=== PATIENT | female | born 2000 | race Caucasian/White ===

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

== ENCOUNTER → 2019-03-04 10:17 | Outpatient (CLI) | payer OTHER, SELFPAY ==
[2019-03-04 11:32] LABS: Basophils % 0.4 % (0.1-2.0); Eosinophils # 0.1 K/mm3 (0.0-0.4); Hematocrit 39.2 % (37.0-47.0); Hemoglobin 13.4 g/dL (12.2-16.2); Lymphocytes % 19.9 % (10-50); Mean Corpuscular HGB Conc 34.2 g/dL (31.8-35.4); Mean Corpuscular Hemoglobin 27.3 pg (27.0-31.2); Mean Platelet Volume 6.9 fl (7.4-10.4); Monocytes # 0.4 K/mm3 (0.1-1.0); Monocytes % 3.6 % (1.7-9.3); Neutrophils # 7.6 K/mm3 (1.8-7.8); Platelet Count 303 K/mm3 (142-424); Red Blood Count 4.91 M/mm3 (4.20-5.40); Red Cell Distribution Width 12.6 % (11.5-17.5); White Blood Count 10.2 K/mm3 (4.5-13.0)
[2019-03-05 07:19] LABS: HIV Screen 4th Generation wRfx Non Reactive (Non Reactive)
[2019-03-05 18:12] LABS: Hepatitis B Surface Antigen Negative (Negative); Hepatitis C Antibody <0.1 s/co ratio (0.0-0.9); Rapid Plasma Reagin Ab Titer Non Reactive (NonRea<1:1); Rubella Antibodies, IgG 7.73 index (Immune >0.99)
[2019-03-09 06:15] LABS: Neisseria gonorrhoeae, NAA Negative (Negative)
== END ==
PROVIDERS: Visit Provider Nurse Practitioner Obstetrics & Gynecology
DX: Z34.90 Encounter for supervision of normal pregnancy, unspecified, unspecified trimester (principal)
CPT/HCPCS: 36415; 85025; 86592; 86703; 86762; 86850; 87340; 87380; 87491; 87591; G0432

== ENCOUNTER → 2019-03-09 09:04 | Outpatient (CLI) | payer OTHER, SELFPAY ==
--- NOTE | 2019-03-09 09:08 | US_ITS ---
US OB transvaginal HISTORY: ITS.REASON: US OB Dates ORDERING PHYSICIAN: Khalif Lacy MD PATIENT AGE: 18 years COMPARISON: None FINDINGS: An intrauterine gestational sac is present with a pole with a crown-rump length of 1.85cm correlating to gestational age of 8w3d. heart tones are present with an FHR of 160 bpm's. Yolk sac is noted. The amnion and chorion have not yet fused. Adnexa: 15 mm left corpus luteum cyst. IMPRESSION: Live intrauterine gestation at 8 weeks 3 days as described above. Estimated due date by Ultrasound is 10/16/2019
== END ==
PROVIDERS: PCP Emergency Medicine; Visit Provider Nurse Practitioner Obstetrics & Gynecology
DX: O26.841 Uterine size-date discrepancy, first trimester (principal)
CPT/HCPCS: 76817

== ENCOUNTER → 2019-05-31 13:46 | Outpatient (CLI) | payer OTHER, SELFPAY ==
--- NOTE | 2019-05-31 13:48 | US_ITS ---
PROCEDURE: US OB /MATERNAL DETAIL CLINICAL INDICATION: US OB Complete anatomy evaluation COMPARISON: OBTV US OB transvaginal from 04/14/2019 FINDINGS: Single viable intrauterine gestation. Breech position. Placenta: Anteriorplacenta grade 1. There is average amount fluid. The cervix appears satisfactory. Closed and measuring 4 cm in length. Complete survey performed and was unremarkable on the submitted images as in PACS. No discrete anomalies identified on survey imaging by technologist. Active fetus. Three-vessel cord with satisfactory umbilical cord insertion. 4- chamber heart noted. Survey of brain & ventricles Unremarkable. Face and neck survey unremarkable. Diaphragm and chest views unremarkable. Abdomen: Both kidneys noted and unremarkable. Stomach noted and satisfactory. Spine: Survey of the spine satisfactory with no anomalies identified nor imaged. Both arms and legs noted. Amniotic Fluid: Adequate. Maternal adnexa: No significant findings. Measurements: Average ultrasound age 20 weeks 4 days. Gestational Age 20.57 week Estimated due date by ultrasound age 1210/14/2019. Estimated weight 338.6 ggrams. BPD = 21 weeks 0 days OFD = 21 weeks 1 day HC = 20 weeks 3 days AC = 20 weeks 3 days FL = 20 weeks 0 days Growth Percentile= 55.6 Percent% Heart Rate = 140 bpm Cerebellum = 20 weeks 0 days Humerus = 21 weeks 0 days HC/AC is 1.18 CI is 0.78 FL/BPD is 0.64 FL/AC is 0.21 IMPRESSION: There is a single live fetus which is in breech presentation with an average ultrasound age 20 weeks and 4 days. All parameters correlate with no obvious anomalies. Please see above for detail. Dictated by: Nikolay Hamilton MD 06/06/2019 19:43 Signed by: <Electronically signed by Nikolay Hamilton MD in [place]> 06/06/2019 19:43
== END ==
PROVIDERS: PCP Emergency Medicine; Visit Provider Nurse Practitioner Obstetrics & Gynecology
DX: Z36.0 Encounter for antenatal screening for chromosomal anomalies (principal)
CPT/HCPCS: 76811

== ENCOUNTER 2019-07-18 21:16 | Outpatient (CLI) | payer OTHER, SELFPAY ==
[2019-07-18 21:41] VITALS: BMI 30.1
[2019-07-18 22:03] LABS: Microscopic, Urine URINE MICROSCOPIC (MICROSCOPIC)
[2019-07-18 22:05] LABS: Appearance,Urine CLEAR (Clear); Bilirubin,Urine Negative (Negative); Blood, Urine Negative (Negative); Color,Urine YELLOW (Yellow); Glucose,Urine (UA) Negative (Negative); Ketones,Urine Negative (Negative); Leukocyte Esterase,Urine Negative (Negative); Nitrate,Urine Negative (Negative); Protein,Urine Negative (Negative); Specific Gravity, Urine 1.015 (1.005-1.030); Urobilinogen,Urine 0.2 EU/dl (0.2)
[2019-07-18 22:14] LABS: Amorphous Sediment,Urine 1+ /lpf; Bacteria,Urine 1+ /lpf; Mucus,Urine 1+ /lpf
[2019-07-18 22:15] LABS: Amphetamine/Metha Screen,Urine Negative ng/mL (<1000); Barbiturates Screen,Urine Negative ng/mL (<200); Benzodiazepines Screen,Urine Negative ng/mL (<200); Cannabinoid Screen,Urine Negative ng/mL (<50); Cocaine Screen,Urine Negative ng/mL (<300); Methadone Screen,Urine Negative ng/mL (<300); Opiate Screen,Urine Negative ng/mL (<300); Phencyclidine Screen,Urine Negative ng/mL (<25)
[2019-07-18 22:52] VITALS: BMI 30.1
== END 2019-07-18 22:30 | disposition home or self-care (01) ==
LOC: OBOUT 21:19 → OB 21:20
PROVIDERS: PCP Emergency Medicine; Visit Provider Nurse Practitioner Obstetrics & Gynecology
DX: O13.2 Gestational [pregnancy-induced] hypertension without significant proteinuria, second trimester (principal); Z3A.27 27 weeks gestation of pregnancy; M54.5 Low back pain
CPT/HCPCS: 59025; 80305; 81001; 87275; 87276

== ENCOUNTER 2019-08-13 17:37 | Outpatient (CLI) | payer OTHER, SELFPAY ==
[2019-08-13 17:43] VITALS: BP 137/86; PULSE 102; RESP 18; TEMP 36.8; O2SAT 97; BMI 32.0
[2019-08-13 17:59] LABS: Appearance,Urine CLEAR (Clear); Blood, Urine Negative (Negative); Color,Urine YELLOW (Yellow); Glucose,Urine (UA) Negative (Negative); Ketones,Urine Negative (Negative); Leukocyte Esterase,Urine TRACE (Negative); Microscopic, Urine URINE MICROSCOPIC (MICROSCOPIC); Nitrate,Urine Negative (Negative); Protein,Urine TRACE (Negative); Urobilinogen,Urine 0.2 EU/dl (0.2)
[2019-08-13 18:27] LABS: Bilirubin,Urine 1+ (Negative)
[2019-08-13 18:28] LABS: Squamous Epithelial Cell,Urine 50-100 #/hpf (0-5)
[2019-08-13 18:29] LABS: Mucus,Urine 4+ /lpf
[2019-08-13 18:33] LABS: Amphetamine/Metha Screen,Urine Negative ng/mL (<1000); Barbiturates Screen,Urine Negative ng/mL (<200); Benzodiazepines Screen,Urine Negative ng/mL (<200); Cannabinoid Screen,Urine Negative ng/mL (<50); Cocaine Screen,Urine Negative ng/mL (<300); Methadone Screen,Urine Negative ng/mL (<300); Opiate Screen,Urine Negative ng/mL (<300); Phencyclidine Screen,Urine Negative ng/mL (<25)
[2019-08-13 19:31] LABS: Anion Gap 11.3 mEq/L (5-15); Blood Urea Nitrogen 3 mg/dL (7-18); Calcium 8.9 mg/dL (8.5-10.1); Carbon Dioxide 24 mmol/L (21.0-32.0); Chloride 103 mmol/L (98-107); Creatinine Clearance Estimated 256 mL/min (50-200); Creatinine,Serum 0.55 mg/dL (0.55-1.02); Estimated Glomerular Filt Rate 142 ml/min (>60); GFR (African American) 172 ML/MIN (>60); Glucose 80 mg/dL (74-106); Potassium 3.3 mmoL/L (3.5-5.1); Sodium 135 mmol/L (136-145)
== END 2019-08-13 20:15 | disposition home or self-care (01) ==
LOC: OBOUT 17:40 → OB 17:40
PROVIDERS: PCP Nurse Practitioner Obstetrics & Gynecology; Visit Provider Obstetrics & Gynecology
DX: Z34.90 Encounter for supervision of normal pregnancy, unspecified, unspecified trimester (principal); R19.7 Diarrhea, unspecified
CPT/HCPCS: 36415; 59025; 80048; 80305; 81001; 96360

== ENCOUNTER 2019-08-15 11:54 | Outpatient (CLI) | payer OTHER, SELFPAY ==
[2019-08-15 12:03] VITALS: BMI 32.1
[2019-08-15 12:10] VITALS: BP 137/70; PULSE 69; RESP 18; TEMP 36.6; O2SAT 98; BMI 32.1
[2019-08-15 12:45] LABS: Microscopic, Urine URINE MICROSCOPIC (MICROSCOPIC)
[2019-08-15 12:52] LABS: Appearance,Urine CLEAR (Clear); Blood, Urine Negative (Negative); Color,Urine YELLOW (Yellow); Glucose,Urine (UA) Negative (Negative); Ketones,Urine Negative (Negative); Leukocyte Esterase,Urine Negative (Negative); Nitrate,Urine Negative (Negative); PH,Urine 6.5 (5.0-8.5); Protein,Urine TRACE (Negative); Specific Gravity, Urine 1.025 (1.005-1.030)
[2019-08-15 12:59] LABS: Amphetamine/Metha Screen,Urine Negative ng/mL (<1000); Barbiturates Screen,Urine Negative ng/mL (<200); Benzodiazepines Screen,Urine Negative ng/mL (<200); Cannabinoid Screen,Urine Negative ng/mL (<50); Cocaine Screen,Urine Negative ng/mL (<300); Methadone Screen,Urine Negative ng/mL (<300); Opiate Screen,Urine Negative ng/mL (<300); Phencyclidine Screen,Urine Negative ng/mL (<25)
[2019-08-15 13:08] LABS: Bilirubin,Urine Negative (Negative)
[2019-08-15 13:17] LABS: Bacteria,Urine Trace /lpf; Calcium Oxalate Crystals,Urine 1+ /lpf
[2019-08-15 14:29] LABS: Basophils % 0.2 % (0.1-2.0); Eosinophils # 0.1 K/mm3 (0.0-0.4); Eosinophils % 0.9 % (0.1-12.0); Hematocrit 37.8 % (37.0-47.0); Hemoglobin 12.4 g/dL (12.2-16.2); Lymphocytes # 1.7 K/mm3 (0.7-4.5); Lymphocytes % 15.3 % (10-50); Mean Corpuscular HGB Conc 32.9 g/dL (31.8-35.4); Mean Corpuscular Hemoglobin 27.5 pg (27.0-31.2); Mean Corpuscular Volume 83.5 fl (81-99); Mean Platelet Volume 8.5 fl (7.4-10.4); Monocytes # 0.5 K/mm3 (0.1-1.0); Monocytes % 4.1 % (1.7-9.3); Neutrophils # 8.9 K/mm3 (1.8-7.8); Neutrophils % 79.4 % (37.0-80.0); Platelet Count 275 K/mm3 (142-424); Red Blood Count 4.53 M/mm3 (4.20-5.40); Red Cell Distribution Width 12.8 % (11.5-17.5); White Blood Count 11.2 K/mm3 (4.5-13.0)
== END 2019-08-15 13:36 | disposition home or self-care (01) ==
LOC: LAB 11:56 → OB 11:57
PROVIDERS: Nurse Practitioner Obstetrics & Gynecology; PCP Emergency Medicine; Visit Provider Nurse Practitioner Family
DX: R19.7 Diarrhea, unspecified (principal)
CPT/HCPCS: 59025; 80305; 81001; 85025

== ENCOUNTER → 2019-08-15 17:09 | Outpatient (CLI) | payer OTHER, SELFPAY ==
[2019-08-15 17:11] LABS: Adenovirus F 40/41, stool Not Detected (NotDetected); Astrovirus Not Detected (NotDetected); Clostridium Difficile A/B, PCR Not Detected (NotDetected); Cryptosporidium Not Detected (NotDetected); Cyclospora Cayetanesis Not Detected (NotDetected); Entamoeba histolytica Not Detected (NotDetected); Enteroaggregative E coli Not Detected (NotDetected); Giardia lamblia Not Detected (NotDetected); Norovirus Not Detected (NotDetected); Plesimonas Shigalloides, PCR Not Detected (NotDetected); Rotavirus A Not Detected (NotDetected); Salmonella, PCR Not Detected (NotDetected); Sapovirus Not Detected (NotDetected); Shiga-like toxin E coli Not Detected (NotDetected); Shigella Enterovasive E coli Not Detected (NotDetected); Vibrio Cholerae Not Detected (NotDetected); Vibrio, PCR Not Detected (NotDetected); Yersinia Entercolitica, PCR Not Detected (NotDetected)
[2019-08-15 22:52] LABS: Campylobacter Detected (NotDetected); Enteropathogenic E coli Detected (NotDetected)
[2019-08-15 22:53] LABS: Enterotoxigenic E coli Detected (NotDetected)
== END ==
PROVIDERS: Visit Provider Nurse Practitioner Family
DX: R19.7 Diarrhea, unspecified (principal); A04.5 Campylobacter enteritis; A04.1 Enterotoxigenic Escherichia coli infection; A04.0 Enteropathogenic Escherichia coli infection
CPT/HCPCS: 87507

== ENCOUNTER 2020-03-20 15:25 | Emergency (ER) | payer OTHER, SELFPAY ==
[2020-03-20 15:34] VITALS: BP 126/59; PULSE 77; RESP 16; TEMP 36.7; O2SAT 98; BMI 32.3
[2020-03-20 15:39] VITALS: BP 126/59; PULSE 77; RESP 16; TEMP 36.7; O2SAT 98; BMI 32.1
[2020-03-20 16:00] VITALS: BP 124/66; BP 138/83; BP 145/85; PULSE 106; PULSE 119; PULSE 71
--- NOTE | 2020-03-20 16:31 | ECG_ITS ---
APPROVED REPORT Exam: Resting ECG HR:72 bpm ECG Measurements Heart Rate 72 AXES MD 152 P 41 QRSd 94 QRS 82 QT 398 T 62 QTc 435 <Conclusion> Normal sinus rhythm Normal ECG Electronically signed by : Cedrick Jones, 03/24/2020 14:19:00
[2020-03-20 16:53] LABS: Basophils # 0.1 K/mm3 (0-0.2); Basophils % 0.6 % (0.1-2.0); Eosinophils # 0.1 K/mm3 (0.0-0.4); Hematocrit 40.6 % (37.0-47.0); Hemoglobin 13.9 g/dL (12.2-16.2); Lymphocytes # 3.3 K/mm3 (0.7-4.5); Lymphocytes % 25.4 % (10-50); Mean Corpuscular HGB Conc 34.2 g/dL (31.8-35.4); Mean Corpuscular Hemoglobin 26.4 pg (27.0-31.2); Mean Corpuscular Volume 77.1 fl (81-99); Mean Platelet Volume 7.1 fl (7.4-10.4); Monocytes # 0.6 K/mm3 (0.1-1.0); Monocytes % 4.9 % (1.7-9.3); Neutrophils # 8.8 K/mm3 (1.8-7.8); Neutrophils % 68.1 % (37.0-80.0); Platelet Count 344 K/mm3 (142-424); Red Blood Count 5.27 M/mm3 (4.20-5.40)
[2020-03-20 16:57] LABS: Chloride 105 mmol/L (98-107); Sodium 141 mmol/L (136-145)
[2020-03-20 16:58] LABS: Potassium 3.8 mmoL/L (3.5-5.1)
[2020-03-20 17:00] LABS: Alanine Aminotransferase 59 U/L (12-78); Albumin Level 4.4 g/dl (3.5-5.0); Albumin/Globulin Ratio 1.3 (1.1-1.8); Alkaline Phosphatase 118 U/L (38-126); Anion Gap 11.8 mEq/L (5-15); Aspartate Amino Transferase 40 U/L (14-36); Bilirubin,Total 0.5 mg/dl (0.2-1.3); Blood Urea Nitrogen 14 mg/dl (7-17); Carbon Dioxide 28 mmol/L (22.0-30.0); Creatinine Clearance Estimated 184 mL/min (50-200); Estimated Glomerular Filt Rate 107 ml/min (>60); GFR (African American) 129 ML/MIN (>60); Globulin 3.3 g/dL (1.3-3.2); Phosphorous 3.7 mg/dl (2.5-4.5); Total Protein,Serum 7.7 g/dl (6.3-8.2)
[2020-03-20 17:01] LABS: Calcium 9.5 mg/dl (8.4-10.2); Glucose 85 mg/dl (74-100); Magnesium 1.9 mg/dl (1.6-2.3)
--- NOTE | 2020-03-20 17:06 | HMH.EDUTC ---
[facility] [place] [facility] [place] Clinical Impression: Heat exhaustion Qualifiers: Encounter type: initial encounter Qualified Code(s): T67.5XXA - Heat exhaustion, unspecified, initial encounter Disposition: Home, Self-Care Condition on Discharge: Good Instructions: DI for Heat Exhaustion and Heat Stroke Additional Instructions: Drink plenty of fluids. Water or Gatorade would be best Stay cool and rest for the next 24 hours or so. Follow up with your regular doctor. GO TO THE ER FOR ANY WORSENING SYMPTOMS Referrals: Gabriel George MD [Primary Care Provider] - Forms: Work/School Release Time of Disposition: 17:22 Medical Decision Making - Medical Records Medical records reviewed: No: I reviewed the patient's medical records. - Cody Inquiry Pt receiving controlled substance: No Vital Signs: 03/20/20 15:34 03/20/20 15:39 03/20/20 16:00 Temperature 98.0 F 98.0 F Temperature Source Oral Oral Pulse Rate Pulse Rate [Orthostatic Lying Left Brachial] 71 Pulse Rate [Orthostatic Sitting Left Brachial] 106 H Pulse Rate [Orthostatic Standing Left Brachial] 119 H Pulse Rate [Right Brachial] 77 77 Respiratory Rate 16 16 Blood Pressure Blood Pressure [Orthostatic Lying Left Arm] 124/66 Blood Pressure [Orthostatic Sitting Left Arm] 145/85 H Blood Pressure [Orthostatic Standing Left Arm] 138/83 Blood Pressure [Right Radial Artery] 126/59 L 126/59 L Blood Pressure Mean [Right Radial Artery] 81 81 Blood Pressure Source [Right Radial Artery] Automatic Cuff Automatic Cuff Blood Pressure Position [Right Radial Artery] Sitting Sitting 02 Sat by Pulse Oximetry 98 98 Oxygen Delivery Method Room Air Room Air 03/20/20 17:34 Temperature 98.0 F Temperature Source Pulse Rate 77 Pulse Rate [Orthostatic Lying Left Brachial] Pulse Rate [Orthostatic Sitting Left Brachial] Pulse Rate [Orthostatic Standing Left Brachial] Pulse Rate [Right Brachial] Respiratory Rate 16 Blood Pressure 126/59 L Blood Pressure [Orthostatic Lying Left Arm] Blood Pressure [Orthostatic Sitting Left Arm] Blood Pressure [Orthostatic Standing Left Arm] Blood Pressure [Right Radial Artery] Blood Pressure Mean [Right Radial Artery] Blood Pressure Source [Right Radial Artery] Blood Pressure Position [Right Radial Artery] 02 Sat by Pulse Oximetry Oxygen Delivery Method - Lab Data Lab results reviewed: Yes: I reviewed the patient's lab results. Lab Results 03/20/20 16:00: WBC 13.0, RBC 5.27, Hgb 13.9, Hct 40.6, MCV 77.1 L, MCH 26.4 L, MCHC 34.2, RDW 13.0, Plt Count 344, MPV 7.1 L, Neut % (Auto) 68.1, Lymph % (Auto) 25.4, [place] % (Auto) 4.9, Eos % (Auto) 1.0, Baso % (Auto) 0.6, Neut # (Auto) 8.8 H, Lymph # (Auto) 3.3, [place] # (Auto) 0.6, Eos # (Auto) 0.1, Baso # (Auto) 0.1 03/20/20 16:00: Sodium 141, Potassium 3.8, Chloride 105, Carbon Dioxide 28, Anion Gap 11.8, BUN 14, Creatinine 0.70, Estimated Creat Clear 184, Estimated GFR 107, Est GFR ( Amer) 129, Glucose 85, Calcium 9.5, Phosphorus 3.7, Magnesium 1.9, Total Bilirubin 0.5, AST 40 H, ALT 59, Alkaline Phosphatase 118, Total Protein 7.7, Albumin 4.4, Globulin 3.3 H, Albumin/Globulin Ratio 1.3, TSH 2.06 Result diagrams: 03/20/20 16:00 03/20/20 16:00 Orders (Tests/Meds): ED MEDICATIONS Discontinued Medications Generic Name Dose Route Start Last Admin Trade Name Freq PRN Reason Stop Dose Admin Sodium Chloride 1,000 mls @ 999 mls/hr 03/20/20 16:30 03/20/20 16:05 Sod Chlor 0.9% 1000ml Bag IV 03/20/20 17:30 999 mls/hr .[id number] KARISHMA Administration Ibuprofen 600 mg 03/20/20 04:30 03/20/20 18:11 Motrin 600mg Tablet PO 03/20/20 04:31 Not Given ONCE ONE Ibuprofen 600 mg 03/20/20 16:30 03/20/20 16:40 Motrin 600mg Tablet PO 03/20/20 16:31 600 mg ONCE ONE Administration Medical Decision Narrative: After 1 liter ns bolus, she stated that she felt much better. Her electrolytes were wnl on her lab work. [facility] [place] [facility] [place] HPI - G
[2020-03-20 17:32] LABS: Thyroid Stimulating Hormone 2.06 uIU/mL (0.465-4.68)
[2020-03-20 17:34] VITALS: BP 126/59; PULSE 77; RESP 16; TEMP 36.7; O2SAT 98
== END 2020-03-20 17:41 | disposition home or self-care (01) ==
PROVIDERS: Emergency Provider Nurse Practitioner Family; PCP Emergency Medicine
DX: T67.5XXA Heat exhaustion, unspecified, initial encounter (principal); F41.8 Other specified anxiety disorders; Z90.09 Acquired absence of other part of head and neck
CPT/HCPCS: 80053; 83735; 84100; 84443; 85025; 93005; 96365; 99202

== ENCOUNTER 2020-03-22 22:06 | Emergency (ER) | payer OTHER, SELFPAY ==
[2020-03-22 22:24] VITALS: BP 141/92; PULSE 85; RESP 17; TEMP 36.9; O2SAT 100; BMI 32.5
--- NOTE | 2020-03-22 22:34 | ECG_ITS ---
APPROVED REPORT Exam: Resting ECG HR:60 bpm ECG Measurements Heart Rate 60 AXES HI 138 P 38 QRSd 86 QRS 70 QT 416 T 64 QTc 416 <Conclusion> Normal sinus rhythm Normal ECG Electronically signed by : Cedrick Jones, 03/24/2020 14:13:53
[2020-03-22 22:48] LABS: Basophils # 0.1 K/mm3 (0-0.2); Basophils % 0.4 % (0.1-2.0); Eosinophils # 0.2 K/mm3 (0.0-0.4); Eosinophils % 1.2 % (0.1-12.0); Hematocrit 41.1 % (37.0-47.0); Hemoglobin 14.3 g/dL (12.2-16.2); Lymphocytes # 3.7 K/mm3 (0.7-4.5); Lymphocytes % 25.5 % (10-50); Mean Corpuscular HGB Conc 34.8 g/dL (31.8-35.4); Mean Corpuscular Volume 77.7 fl (81-99); Mean Platelet Volume 6.8 fl (7.4-10.4); Monocytes # 0.5 K/mm3 (0.1-1.0); Monocytes % 3.5 % (1.7-9.3); Neutrophils # 10.1 K/mm3 (1.8-7.8); Neutrophils % 69.4 % (37.0-80.0); Platelet Count 344 K/mm3 (142-424); Red Blood Count 5.29 M/mm3 (4.20-5.40); Red Cell Distribution Width 13.1 % (11.5-17.5); White Blood Count 14.6 K/mm3 (4.5-13.0)
[2020-03-22 22:56] LABS: Chloride 104 mmol/L (98-107); HCG Qualitative, Serum Negative (Negative); Potassium 3.7 mmoL/L (3.5-5.1); Sodium 140 mmol/L (136-145)
[2020-03-22 22:59] LABS: Blood Urea Nitrogen 13 mg/dl (7-17); Creatinine Clearance Estimated 236 mL/min (50-200); Estimated Glomerular Filt Rate 127 ml/min (>60); GFR (African American) 154 ML/MIN (>60)
[2020-03-22 23:00] LABS: Anion Gap 11.7 mEq/L (5-15); Calcium 9.8 mg/dl (8.4-10.2); Carbon Dioxide 28 mmol/L (22.0-30.0); Glucose 91 mg/dl (74-100)
[2020-03-22 23:13] LABS: Troponin I < 0.01 ng/ml (0.00-0.034)
--- NOTE | 2020-03-22 23:28 | CT_ITS ---
PROCEDURE: CT HEAD/BRAIN WO CON CLINICAL INDICATION: syncope, headache Headache and dizziness COMPARISON: [facility] CT HEAD W/O CONTRAST from 12/04/2013 TECHNIQUE: Axial images obtained. All CT scans at the facility use one or more dose reduction, viz: automated exposure control, ma/kV adjustment per patient size (including targeted exams where dose is matched to indication, i.e. head), or iterative reconstruction technique. FINDINGS: No midline shift, mass effect, intracranial hemorrhage, hydrocephalus, or extra-axial fluid collection is evident. The calvarium has an unremarkable appearance. No mastoid effusion. No sinus air-fluid level. IMPRESSION: No acute intracranial finding Dictated by: Nikolay Hamilton MD 03/23/2020 06:12 Electronically signed by Nikolay Hamilton MD in [place] 03/23/2020 06:12
--- NOTE | 2020-03-22 23:29 | PC.NURSE ---
called rad for head ct
--- NOTE | 2020-03-22 23:42 | PC.NURSE ---
to ct at this time
--- NOTE | 2020-03-22 23:52 | PC.NURSE ---
pt back from RAD
[2020-03-23 00:32] VITALS: BP 127/68; PULSE 87; O2SAT 100
--- NOTE | 2020-03-23 00:56 | HMH.EDDIZZ ---
ED Disposition Clinical Impression: Vertigo, Dizziness Disposition: Home, Self-Care Condition on Discharge: Good Instructions: DI for Syncope in Adults (Fainting) Additional Instructions: fluids and see pcp for follow up Referrals: Gabriel George MD [Primary Care Provider] - - Critical Care Critical Care Time: No Attestation: On 03/22/20, the high probability of a clinically significant, sudden or life threatening deterioration of the following system(s) required my full and direct attention, intervention and personal management. The time I documented below is in addition to time spent performing reported procedures but includes the following listed in this critical care notation. Medical Decision Making - Medical Records Medical records reviewed: Yes: I reviewed the patient's medical records. - Cody Inquiry Pt receiving controlled substance: No Vital Signs: 03/22/20 22:24 03/23/20 00:32 03/23/20 01:12 Temperature 98.5 F Temperature Source Oral Pulse Rate [Right Brachial] 85 87 78 Respiratory Rate 17 16 Blood Pressure [Right Arm] 141/92 H 127/68 116/81 Blood Pressure Mean [Right Arm] 108 87 92 Blood Pressure Source [Right Arm] Automatic Cuff Automatic Cuff Automatic Cuff Blood Pressure Position [Right Arm] Sitting Supine Sitting 02 Sat by Pulse Oximetry 100 100 97 Oxygen Delivery Method Room Air Room Air Room Air - Lab Data Lab results reviewed: Yes: I reviewed the patient's lab results. Lab Results 03/22/20 22:32: WBC 14.6 H, RBC 5.29, Hgb 14.3, Hct 41.1, MCV 77.7 L, MCH 27.0, MCHC 34.8, RDW 13.1, Plt Count 344, MPV 6.8 L, Neut % (Auto) 69.4, Lymph % (Auto) 25.5, [place] % (Auto) 3.5, Eos % (Auto) 1.2, Baso % (Auto) 0.4, Neut # (Auto) 10.1 H, Lymph # (Auto) 3.7, [place] # (Auto) 0.5, Eos # (Auto) 0.2, Baso # (Auto) 0.1 03/22/20 22:32: Sodium 140, Potassium 3.7, Chloride 104, Carbon Dioxide 28, Anion Gap 11.7, BUN 13, Creatinine 0.60, Estimated Creat Clear 236, Estimated GFR 127, Est GFR ( Amer) 154, Glucose 91, Calcium 9.8, Troponin I < 0.01 03/22/20 22:32: Serum HCG, Qual Negative 03/23/20 00:00: SARS-CoV-2 IgG Ab (Rapid) Negative, SARS-CoV-2 IgM Ab (Rapid) Negative 03/23/20 00:00: ESR 10 03/23/20 00:00: C-Reactive Protein 2.4 03/23/20 01:00: Urine Color Yellow, Urine Appearance Clear, Urine pH 6.5, Ur Specific [place] 1.020, Urine Protein Negative, Urine Glucose (UA) Negative, Urine Ketones Negative, Urine Blood Negative, Urine Nitrate Negative, Urine Bilirubin Negative, Urine Urobilinogen 0.2, Ur Leukocyte Esterase Negative, Urine WBC Occasional, Ur Squamous Epith Cells Occasional, Amorphous Sediment 1+, Urine Bacteria Trace Result diagrams: 03/22/20 22:32 03/22/20 22:32 Orders (Tests/Meds): ED MEDICATIONS Generic Name Dose Route Start Last Admin Trade Name Freq PRN Reason Stop Dose Admin Sodium Chloride 1,000 mls @ 999 mls/hr 03/22/20 22:45 03/22/20 22:44 Sod Chlor 0.9% 1000ml Bag IV 03/22/20 23:45 999 mls/hr .Q1H1M KARISHMA Administration Discontinued Medications Generic Name Dose Route Start Last Admin Trade Name Freq PRN Reason Stop Dose Admin Ketorolac Tromethamine 30 mg 03/22/20 23:37 03/22/20 23:39 Toradol 30mg/Ml Vial IV 03/22/20 23:38 30 mg ONCE ONE Administration Meclizine HCl 25 mg 03/22/20 23:24 03/22/20 23:25 Antivert 25mg Tablet PO 03/22/20 23:25 25 mg ONCE ONE Administration ORDERS Category Date Time Status CT head/brain wo con Stat Cat Scan 03/22/20 23:28 Taken Troponin I Q3H Lab 03/23/20 01:45 Ordered Troponin I Q3H Lab 03/23/20 04:45 Ordered - CT Data CT Scan: Head Time Received: 01:[address] Reviewed: Yes: I have viewed the radiologist's interpretation Preliminary Findings: Normal/NAD - ECG Data Tracing #1 Normal Sinus Rhythm: Yes Ischemic changes: non-specific ST-T wave changes Dizzy HPI - General Chief Complaint: Syncope Stated Complaint: dizzy,nausa Time Seen by Provider: 03/23/20 00:00
--- NOTE | 2020-03-23 01:01 | PC.NURSE ---
pt ambulated to the bathroom independently. tolerated well.
[2020-03-23 01:11] LABS: Microscopic, Urine URINE MICROSCOPIC (MICROSCOPIC)
[2020-03-23 01:12] VITALS: BP 116/81; PULSE 78; RESP 16; O2SAT 97
[2020-03-23 01:20] LABS: Appearance,Urine CLEAR (Clear); Bilirubin,Urine Negative (Negative); Blood, Urine Negative (Negative); Color,Urine YELLOW (Yellow); Glucose,Urine (UA) Negative (Negative); Ketones,Urine Negative (Negative); Leukocyte Esterase,Urine Negative (Negative); Nitrate,Urine Negative (Negative); PH,Urine 6.5 (5.0-8.5); Protein,Urine Negative (Negative); Urobilinogen,Urine 0.2 EU/dl (0.2)
[2020-03-23 01:24] LABS: C-Reactive Protein 2.4 mg/L (0-4)
[2020-03-23 01:26] LABS: Amorphous Sediment,Urine 1+ /lpf; Bacteria,Urine Trace /lpf; Squamous Epithelial Cell,Urine Occasional #/hpf (0-5); WBC,Urine Occasional #/hpf (0-3)
[2020-03-23 01:36] LABS: Erythrocyte Sedimentation Rate 10 mm/hr (0-20)
[2020-03-23 01:41] LABS: Coronavirus 19 IgG Antibody Negative (Negative); Coronavirus 19 IgM Antibody Negative (Negative)
[2020-03-23 02:12] VITALS: BP 121/74; PULSE 73; RESP 16; TEMP 36.7; O2SAT 97
[2020-03-25 08:55] LABS: Covid-19 Nasal PCR Sendout Lex Not Detected
== END 2020-03-23 02:16 | disposition home or self-care (01) ==
PROVIDERS: Emergency Provider Emergency Medicine; PCP Emergency Medicine
DX: R42 Dizziness and giddiness (principal); F41.8 Other specified anxiety disorders
CPT/HCPCS: 70450; 80048; 81001; 84484; 84703; 85025; 85651; 86140; 86328; 93005; 96365; 96375; 99283; 99284; U0004

== ENCOUNTER → 2020-03-26 17:50 | Outpatient (CLI) | payer OTHER, SELFPAY ==
[2020-03-26 18:32] LABS: T4 (Thyroxine) 9.4 ug/dl (5.53-11.0)
[2020-03-26 19:30] LABS: Thyroid Stimulating Hormone 1.61 uIU/mL (0.465-4.68)
[2020-03-26 20:11] LABS: Hemoglobin A1C 5.3 % (4.0-6.0)
== END ==
PROVIDERS: Visit Provider Physician Assistant
DX: R42 Dizziness and giddiness (principal); E03.9 Hypothyroidism, unspecified
CPT/HCPCS: 83036; 84436; 84443

== ENCOUNTER 2020-04-10 14:36 | Emergency (ER) | payer OTHER, SELFPAY ==
[2020-04-10 14:36] VITALS: BP 122/78; PULSE 77; RESP 21; TEMP 36.7; O2SAT 100; BMI 32.5
--- NOTE | 2020-04-10 15:14 | HMH.EDUTC ---
[facility] Disposition Clinical Impression: Low back pain Qualifiers: Chronicity: unspecified Back pain laterality: unspecified Sciatica presence: unspecified whether sciatica present Qualified Code(s): M54.5 - Low back pain Disposition: Home, Self-Care Condition on Discharge: Good Instructions: Low Back Pain, DI for Low Back Pain Additional Instructions: *Etodolac patti 6 hours with meal as needed for pain/inflammation *Remember you had a Toradol shot in the clinic today, which is similar to Etodolac, do not take Etodolac for at least 8hrs 11pm *Not additional anti-inflammatory like motrin, aleve, advil with the above amount of Etodolac. You can still take Tylenol every 4 hours as needed if you need something else for pain *Ice 20 minutes every 2 hours for the first 48 hours after the initial injury followed by moist heat every 20 minutes 3-4 times a day to affected area *Keep this area active, no movement leads to more stiffness, However take it easy and avoid heavy lifting pushing or pulling *Follow up with you family doctor if no improvement for further treatment Return if needed Straight to ER if any life threatening symptoms Follow up with Family doctor if no improvement or any worsening of symptoms in the next 48-72 hours Prescriptions: Etodolac [Etodolac 200mg Cap*] 200 mg PO Q6H PRN #16 cap PRN Reason: Moderate Pain Transmission Status: Received by [facility] Referrals: Gabriel George MD [Primary Care Provider] - As needed Time of Disposition: 15:53 Medical Decision Making - Cody Inquiry Pt receiving controlled substance: No Cody was queried for this patient: No Vital Signs: 04/10/20 14:36 Temperature 98.1 F Temperature Source Oral Pulse Rate [Radial] 77 Respiratory Rate 21 Blood Pressure [Right Arm] 122/78 Blood Pressure Mean [Right Arm] 92 Blood Pressure Source [Right Arm] Automatic Cuff Blood Pressure Position [Right Arm] Sitting 02 Sat by Pulse Oximetry 100 Oxygen Delivery Method Room Air - Lab Data Lab results reviewed: Yes: I reviewed the patient's lab results. Lab Results 04/10/20 15:06: Urine Color Yellow, Urine Appearance Clear, Urine pH 7.0, Ur Specific [place] 1.020, Urine Protein Negative, Urine Glucose (UA) Negative, Urine Ketones Negative, Urine Blood Negative, Urine Nitrate Negative, Urine Bilirubin Negative, Urine Urobilinogen 1, Ur Leukocyte Esterase Negative 04/10/20 15:15: Tst Clinic Negative Orders (Tests/Meds): ED MEDICATIONS Discontinued Medications Generic Name Dose Route Start Last Admin Trade Name Lucia PRN Reason Stop Dose Admin Ketorolac Tromethamine 60 mg 04/10/20 15:21 04/10/20 15:35 Toradol 60mg/2ml Vial IM 04/10/20 15:22 60 mg ONCE ONE Administration - Reevaluation(s) Time: 15:53 Reevaluation #1: Patient state that Torodol helped with pain Medical Decision Narrative: Patient denies known injury Discussed with patient that we could send her to the ED for further evaluation and testing and she declined State that she will try injection of Torodol and see if it helps and if not follow up with PCP or OBGYN [facility] HPI - General Stated complaint: back pain, no accident Time Seen by Provider: 04/10/20 15:14 Mode of Arrival: Ambulatory Source of Information: Patient Limitations: No Limitations Description of Symptoms (Recalled from Triage Doc. by RN): lower back pain/tons of pressure since last night. HEENT Symptoms (Recalled from RN notes): No Resp Symptoms (Recalled from RN notes): No Skin Symptoms (Recalled from RN notes): No MS Symptoms (Recalled from RN notes): Yes Functional Status (Recalled from RN notes): wnl - History of Present Illness Provider Complaint: Patient states that she has been having throbbing like pain in her lower back area worse on left side with pressure like feeling State that pain feels like it may be moving into her left buttock area State that she was worried that she may have a UTI States
[2020-04-10 15:36] LABS: Apearance,Urine Clear (Clear); Bilirubin,Urine Negative (Negative); Blood, Urine Negative (Negative); Color,Urine Yellow (Yellow); Glucose,Urine (UA) Negative (Negative); Ketones,Urine Negative (Negative); Protein,Urine Negative (Negative)
[2020-04-10 15:36] LABS: UTC Pregnancy Test, Urine Negative (Negative)
[2020-04-10 15:37] LABS: UTC Leukocyte Esterase,Urine Negative (Negative); UTC Nitrate,Urine Negative (Negative); Urobilinogen,Urine 1 EU/dl (0.2)
[2020-04-10 16:03] VITALS: BP 122/78; PULSE 77; RESP 21; TEMP 36.7; O2SAT 100
== END 2020-04-10 16:05 | disposition home or self-care (01) ==
PROVIDERS: Emergency Provider Nurse Practitioner; PCP Emergency Medicine
DX: M54.5 Low back pain (principal); F41.8 Other specified anxiety disorders; Z79.899 Other long term (current) drug therapy
CPT/HCPCS: 81003; 81025; 96372; 99201; 99202

== ENCOUNTER → 2020-07-02 11:11 | Outpatient (CLI) | payer OTHER, SELFPAY ==
[2020-07-03 15:19] LABS: Covid-19 Nasal PCR Sendout Lex Not Detected
== END ==
PROVIDERS: PCP Emergency Medicine; Visit Provider Physician Assistant
DX: Z20.828 Contact with and (suspected) exposure to other viral communicable diseases (principal)
CPT/HCPCS: U0004

== ENCOUNTER 2021-02-04 20:53 | Emergency (ER) | payer OTHER, SELFPAY ==
[2021-02-04 21:15] VITALS: BP 127/80; PULSE 96; RESP 18; TEMP 36; O2SAT 98; BMI 34.0
[2021-02-04 21:32] LABS: Microscopic, Urine URINE MICROSCOPIC (MICROSCOPIC)
[2021-02-04 21:33] LABS: Appearance,Urine CLEAR (Clear); Bilirubin,Urine Negative (Negative); Blood, Urine TRACE-I (Negative); Color,Urine YELLOW (Yellow); Glucose,Urine (UA) Negative (Negative); Ketones,Urine Negative (Negative); Leukocyte Esterase,Urine Negative (Negative); Nitrate,Urine Negative (Negative); Protein,Urine Negative (Negative); Specific Gravity, Urine 1.025 (1.005-1.030); Urobilinogen,Urine 0.2 EU/dl (0.2)
[2021-02-04 21:35] LABS: Urine Pregnancy, HCG Qual. Negative (Negative)
--- NOTE | 2021-02-04 21:42 | CT_ITS ---
PROCEDURE: CT ABDOMEN PELVIS W CON CLINICAL INDICATION: Abd pain COMPARISON: No exams were available for comparison TECHNIQUE: IV Contrast: 75ML OPTIRAY 350 Oral Contrast none given Axial images obtained with sagittal and coronal reformats. All CT scans at the facility use one or more dose reduction, viz: automated exposure control, ma/kV adjustment per patient size (including targeted exams where dose is matched to indication, i.e. head), or iterative reconstruction technique. FINDINGS: Lower thorax: The lower lung bajwa are clear and there is no pleural fluid. ABDOMEN: Liver: The liver is normal size and shows mild diffuse hypodensity consistent with fatty infiltration. There are no focal lesions. Gallbladder: Post cholecystectomy Pancreas: No masses or peripancreatic fluid collections. Spleen: unremarkable Adrenals: unremarkable Kidneys/ureters: unremarkable The kidneys show symmetrical function following injection of contrast. ABDOMEN & PELVIS: Stomach bowel: Stomach is moderately distended with ingested food particles and fluid appears grossly normal. The small bowel appears normal. There is liquid stool in the cecum and ascending colon, the descending and sigmoid colon are somewhat decompressed. Peritoneum: No abnormal fluid collections. No obvious inflammatory changes. There is a tiny umbilical hernia containing fat only. No free air. Lymph nodes: No enlarged lymph nodes apparent. Vasculature: No evidence of abdominal aortic aneurysm. No retroperitoneal hemorrhage evident. Bones: There is a moderate-sized central disc protrusion L5-S1, is are history of low back pain and/or radiculopathy in either leg ? PELVIS: Reproductive: The uterus is normal size and in the midline. There is a tampon in the vagina. There is a small left adnexal cystic lesion measuring 2.4 x 2.6 by 3.1 cm and likely an ovarian cyst. Bladder: The bladder is decompressed but otherwise appears normal. There is a small amount of free fluid in the cul-de-sac likely physiologic. Appendix: Not definitely identified but there are no pericecal inflammatory changes. IMPRESSION: 1. Mild hepatic steatosis 2. Probable small left ovarian cyst 3. Liquid stool ascending colon consistent with history of diarrhea 4. Moderate size central disc protrusion L5-S1 Dictated by: Dr. Jude Ward MD 02/05/2021 07:41 Dr. Jude Ward MD in [place] 02/05/2021 07:41
[2021-02-04 21:44] LABS: Bacteria,Urine 1+ /lpf; Mucus,Urine 1+ /lpf; RBC,Urine Occasional #/hpf (0-3)
[2021-02-04 22:08] LABS: Basophils # 0.1 K/mm3 (0-0.2); Basophils % 0.3 % (0.1-2.0); Eosinophils # 0.2 K/mm3 (0.0-0.4); Eosinophils % 1.1 % (0.1-12.0); Hematocrit 45.3 % (37.0-47.0); Hemoglobin 14.9 g/dL (12.2-16.2); Lymphocytes # 2.3 K/mm3 (0.7-4.5); Mean Corpuscular HGB Conc 32.9 g/dL (31.8-35.4); Mean Corpuscular Hemoglobin 26.1 pg (27.0-31.2); Mean Corpuscular Volume 79.2 fl (81-99); Mean Platelet Volume 7.3 fl (7.4-10.4); Monocytes # 0.4 K/mm3 (0.1-1.0); Neutrophils # 17.8 K/mm3 (1.8-7.8); Neutrophils % 85.7 % (37.0-80.0); Platelet Count 362 K/mm3 (142-424); Red Blood Count 5.72 M/mm3 (4.20-5.40); White Blood Count 20.8 K/mm3 (4.8-10.8)
[2021-02-04 22:12] LABS: MANUAL DIFFERENTIAL MANUAL DIFFERENTIAL (MANUAL DIFF)
[2021-02-04 22:15] LABS: Alanine Aminotransferase 79 U/L (12-78); Albumin Level 3.9 g/dl (3.5-5.0); Albumin/Globulin Ratio 1.4 (1.1-1.8); Alkaline Phosphatase 102 U/L (38-126); Amylase 57 U/L (30-110); Anion Gap 10.9 mEq/L (5-15); Aspartate Amino Transferase 71 U/L (14-36); Bilirubin,Total 0.3 mg/dl (0.2-1.3); Blood Urea Nitrogen 8 mg/dl (7-17); Calcium 7.9 mg/dl (8.4-10.2); Carbon Dioxide 18 mmol/L (22.0-30.0); Chloride 116 mmol/L (98-107); Creatinine Clearance Estimated 366 mL/min (50-200); Estimated Glomerular Filt Rate 201 ml/min (>60); GFR (African American) 244 ML/MIN (>60); Globulin 2.7 g/dL (1.3-3.2); Glucose 82 mg/dl (74-100); Lipase 27 U/L (23-300); Sodium 142 mmol/L (136-145); Total Protein,Serum 6.6 g/dl (6.3-8.2)
[2021-02-04 22:19] LABS: Potassium 2.9 mmoL/L (3.5-5.1)
[2021-02-04 22:20] LABS: C-Reactive Protein 1.3 mg/L (0-4)
[2021-02-04 22:35] LABS: Procalcitonin 0.038 ng/mL (0.0-2.0)
[2021-02-04 22:39] LABS: Erythrocyte Sedimentation Rate 6 mm/hr (0-20)
[2021-02-04 22:42] LABS: Lymphocytes % 15 % (10-50); Monocytes % 4 % (2-9); Neutrophils % 81 % (42-76); Platelet Estimate Normal; RBC Morphology Normal; Total Cells Counted 100
--- NOTE | 2021-02-04 23:49 | HMH.EDNVD ---
ED Disposition Clinical Impression: Gastroenteritis, SIRS (systemic inflammatory response syndrome), Hypokalemia Disposition: Home, Self-Care Condition on Discharge: Good Instructions: DI for Diarrhea and Traveler's Diarrhea -- Adult Additional Instructions: fluids and try to get diarrhea panel as op Referrals: Gabriel George MD [Primary Care Provider] - - Critical Care Critical Care Time: No Attestation: On 02/04/21, the high probability of a clinically significant, sudden or life threatening deterioration of the following system(s) required my full and direct attention, intervention and personal management. The time I documented below is in addition to time spent performing reported procedures but includes the following listed in this critical care notation. Medical Decision Making - Medical Records Medical records reviewed: Yes: I reviewed the patient's medical records. - Cody Inquiry Pt receiving controlled substance: No Vital Signs: 02/04/21 21:15 Temperature 96.8 F L Temperature Source Oral Pulse Rate [Apical] 96 H Respiratory Rate 18 Blood Pressure [Right Arm] 127/80 Blood Pressure Mean [Right Arm] 95 Blood Pressure Source [Right Arm] Automatic Cuff Blood Pressure Position [Right Arm] Supine 02 Sat by Pulse Oximetry 98 Oxygen Delivery Method Room Air - Lab Data Lab results reviewed: Yes: I reviewed the patient's lab results. Lab Results 02/04/21 21:30: Urine Color Yellow, Urine Appearance Clear, Urine pH 6.0, Ur Specific [place] 1.025, Urine Protein Negative, Urine Glucose (UA) Negative, Urine Ketones Negative, Urine Blood Trace-i, Urine Nitrate Negative, Urine Bilirubin Negative, Urine Urobilinogen 0.2, Ur Leukocyte Esterase Negative, Urine RBC Occasional, Urine WBC 3-5, Urine Bacteria 1+, Urine Mucus 1+ 02/04/21 21:30: Urine HCG, Qual Negative 02/04/21 21:45: WBC 20.8 H*, RBC 5.72 H, Hgb 14.9, Hct 45.3, MCV 79.2 L, MCH 26.1 L, MCHC 32.9, RDW 13.0, Plt Count 362, MPV 7.3 L, Neut % (Auto) 85.7 H, Lymph % (Auto) 11.0, [place] % (Auto) 2.0, Eos % (Auto) 1.1, Baso % (Auto) 0.3, Neut # (Auto) 17.8 H, Lymph # (Auto) 2.3, [place] # (Auto) 0.4, Eos # (Auto) 0.2, Baso # (Auto) 0.1, Total Counted 100, Neutrophils % (Manual) 81 H, Lymphocytes % (Manual) 15, Monocytes % (Manual) 4, Platelet Estimate Normal, RBC Morphology Normal, ESR 6 02/04/21 21:45: Sodium 142, Potassium 2.9 L*, Chloride 116 H, Carbon Dioxide 18 L, Anion Gap 10.9, BUN 8, Creatinine 0.40 L, Estimated Creat Clear 366 H, Estimated GFR 201, Est GFR ( Amer) 244, Glucose 82, Calcium 7.9 L, Total Bilirubin 0.3, AST 71 H, ALT 79 H, Alkaline Phosphatase 102, C-Reactive Protein 1.3, Total Protein 6.6, Albumin 3.9, Globulin 2.7, Albumin/Globulin Ratio 1.4, Amylase 57, Lipase 27, Procalcitonin 0.038 Result diagrams: 02/04/21 21:45 02/04/21 21:45 Orders (Tests/Meds): ED MEDICATIONS Generic Name Dose Route Start Last Admin Trade Name Freq PRN Reason Stop Dose Admin Sodium Chloride 1,000 mls @ 999 mls/hr 02/04/21 21:45 02/04/21 22:10 Sod Chlor 0.9% 1000ml Bag IV 02/04/21 22:45 999 mls/hr .Q1H1M KARISHMA Administration Sodium Chloride 8 ml 02/04/21 21:42 Sodium Chloride 0.9% 10ml Vial IV 03/06/21 21:41 NEEDED PRN dilute pepcid Discontinued Medications Generic Name Dose Route Start Last Admin Trade Name Freq PRN Reason Stop Dose Admin Famotidine 20 mg 02/04/21 21:42 02/04/21 22:09 Famotidine 20mg/2ml Vial IV 02/04/21 21:43 20 mg ONCE ONE Administration Iopamidol 75 ml 02/04/21 22:08 02/04/21 22:10 Iopamidol-370 (76%);100ml Bottle IV 02/04/21 22:09 75 ml ONCE ONE Administration Ketorolac Tromethamine 30 mg 02/04/21 21:42 02/04/21 22:09 Ketorolac 30mg/Ml Vial IV 02/04/21 21:43 30 mg ONCE ONE Administration Metoclopramide HCl 10 mg 02/04/21 21:42 02/04/21 22:09 Metoclopramide Hcl 10mg/2ml Vial IVP 02/04/21 21:43 10 mg ONCE ONE Administration Ondansetron HCl 4 mg 04
[2021-02-05 00:34] VITALS: BP 121/67; PULSE 96; RESP 18; TEMP 36; O2SAT 98
== END 2021-02-05 00:38 | disposition home or self-care (01) ==
PROVIDERS: Emergency Provider Emergency Medicine; PCP Emergency Medicine
DX: K52.9 Noninfective gastroenteritis and colitis, unspecified (principal); E87.6 Hypokalemia; R65.10 Systemic inflammatory response syndrome (SIRS) of non-infectious origin without acute organ dysfunction; F41.8 Other specified anxiety disorders
CPT/HCPCS: 74177; 80053; 81001; 81025; 82150; 83690; 84145; 85007; 85025; 85651; 86140; 96365; 96375; 99283; J2405; Q9967

== ENCOUNTER → 2021-08-05 10:46 | Outpatient (CLI) | payer OTHER, SELFPAY ==
[2021-08-05 11:47] LABS: HCG,Quantitative 116 mIU/ml (0-5.42)
== END ==
PROVIDERS: Visit Provider Nurse Practitioner Obstetrics & Gynecology
DX: N92.6 Irregular menstruation, unspecified (principal)
CPT/HCPCS: 36415; 84702

== ENCOUNTER → 2021-08-12 11:52 | Outpatient (CLI) | payer OTHER, SELFPAY ==
[2021-08-12 13:25] LABS: HCG,Quantitative 2046 mIU/ml (0-5.42)
== END ==
PROVIDERS: Visit Provider Nurse Practitioner Obstetrics & Gynecology
DX: N92.6 Irregular menstruation, unspecified (principal)
CPT/HCPCS: 36415; 84702

== ENCOUNTER → 2021-09-16 14:37 | Outpatient (CLI) | payer OTHER, SELFPAY ==
--- NOTE | 2021-09-16 14:47 | US_ITS ---
PROCEDURE: US OB <= 14 WEEKS FETUS CLINICAL INDICATION: for dates The COMPARISON: US US OB /MATERNAL DETAIL from 05/31/2019 FINDINGS: An intrauterine gestational sac is present with a pole with a crown-rump length of 3.31cm correlating to gestational age of 10weeks 2days. heart tones are present with an FHR of 160bpm. Yolk sac is noted. IMPRESSION: Live IUP at 10 weeks 2 days Estimated due date by Ultrasound is 04/12/2022 Dictated by: Nikolay Hamilton MD 09/16/2021 16:35 Nikolay Hamilton MD in [place] 09/16/2021 16:35
== END ==
PROVIDERS: PCP Emergency Medicine; Visit Provider Nurse Practitioner Obstetrics & Gynecology
DX: Z34.90 Encounter for supervision of normal pregnancy, unspecified, unspecified trimester (principal)
CPT/HCPCS: 76801

== ENCOUNTER 2021-09-16 18:37 | Emergency (ER) | payer OTHER, SELFPAY ==
[2021-09-16 18:38] VITALS: BMI 26.6
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
[2021-09-16 18:51] VITALS: BP 146/83; PULSE 70; RESP 18; TEMP 36.9; O2SAT 99; BMI 28.1
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
[2021-09-16 19:21] LABS: Urine Pregnancy, HCG Qual. Positive (Negative)
[2021-09-16 19:59] VITALS: BP 146/83; PULSE 78; RESP 16; TEMP 36.8; O2SAT 98
== END 2021-09-16 20:00 | disposition home or self-care (01) ==
PROVIDERS: Emergency Provider Family Medicine; PCP Emergency Medicine
DX: S30.1XXA Contusion of abdominal wall, initial encounter (principal); Y04.2XXA Assault by strike against or bumped into by another person, initial encounter; Y92.019 Unspecified place in single-family (private) house as the place of occurrence of the external cause; Z3A.10 10 weeks gestation of pregnancy; F41.8 Other specified anxiety disorders
CPT/HCPCS: 76817; 81025; 99282

== ENCOUNTER → 2021-11-20 07:45 | Outpatient (CLI) | payer OTHER, SELFPAY ==
[2021-11-20 08:26] LABS: Basophils % 0.4 % (0.1-2.0); Eosinophils # 0.2 K/mm3 (0.0-0.4); Eosinophils % 1.2 % (0.1-12.0); Hemoglobin 12.8 g/dL (12.2-16.2); Lymphocytes # 2.5 K/mm3 (0.7-4.5); Lymphocytes % 20.2 % (10-50); Mean Corpuscular HGB Conc 32.9 g/dL (31.8-35.4); Mean Corpuscular Hemoglobin 27.3 pg (27.0-31.2); Mean Corpuscular Volume 82.8 fl (81-99); Mean Platelet Volume 7.8 fl (7.4-10.4); Monocytes # 0.5 K/mm3 (0.1-1.0); Monocytes % 4.4 % (1.7-9.3); Neutrophils # 9.2 K/mm3 (1.8-7.8); Platelet Count 301 K/mm3 (142-424); Red Cell Distribution Width 13.8 % (11.5-17.5); White Blood Count 12.4 K/mm3 (4.8-10.8)
[2021-11-21 08:15] LABS: HIV Screen 4th Generation wRfx Non Reactive (Non Reactive); HSV 2 IgG, Type Spec <0.91 index (0.00-0.90); Hepatitis B Surface Antigen Negative (Negative); Hepatitis C Antibody <0.1 s/co ratio (0.0-0.9); Rubella Antibodies, IgG 9.23 index (Immune >0.99)
[2021-11-21 10:18] LABS: Rapid Plasma Reagin Ab Titer Non Reactive (NonRea<1:1)
== END ==
PROVIDERS: PCP Emergency Medicine; Visit Provider Nurse Practitioner Obstetrics & Gynecology
DX: Z34.90 Encounter for supervision of normal pregnancy, unspecified, unspecified trimester (principal)
CPT/HCPCS: 36415; 85025; 86592; 86695; 86703; 86762; 86790; 86850; 87340; 87380; G0432

== ENCOUNTER → 2021-11-26 13:00 | Outpatient (CLI) | payer OTHER, SELFPAY ==
--- NOTE | 2021-11-26 13:01 | US_ITS ---
FINAL REPORT CLINICAL HISTORY: 20 wk ob complete anatomy scan FINDINGS: There is a single live intrauterine gestation. Presentation is breech. The cervix is closed and measures 3.1 cm. Placenta is posterior and grade 1. Cardiac activity is confirmed at 146 bpm. The fetus is active. Three-vessel cord with satisfactory umbilical cord insertion. Four-chamber heart is noted. brain and ventricles are unremarkable. Chest and diaphragm are unremarkable. ABDOMEN: Both kidneys are unremarkable. Stomach is unremarkable. SPINE: No anomalies identified. Both arms and legs noted. AMNIOTIC FLUID: Appropriate amount. MEASUREMENTS: ULTRASOUND AGE: 20 weeks 2 days. GESTATION AGE: 20 weeks 0 days. ESTIMATED WEIGHT: 343 g GROWTH PERCENTILE: 61% BPD: 4.6 cm consistent with 20 weeks 0 days. OFD: 6.3 cm consistent with 21 weeks 0 days. HC: 17.4 cm consistent with 20 weeks 0 days. AC: 15.3 cm consistent with 20 weeks 4 days. FL: 3.3 cm consistent with 20 weeks 2 days. CEREBELLUM: 2.0 cm consistent with 20 weeks 1 days. HUMERUS: 3.1 cm consistent with 20 weeks 2 days. HC/AC: 1.14 CI: 73% FL/BPD: 71% FL/AC: 21% IMPRESSION: Single living IUP with an ultrasound age of 20 weeks 2 days. Reviewed, Interpreted and Dictated by Garth Patel III, MD Transcribed by Davey Man Authenticated by Garth Patel III, MD on 11/26/2021 02:48:04 PM [facility]
== END ==
PROVIDERS: PCP Emergency Medicine; Visit Provider Nurse Practitioner Obstetrics & Gynecology
DX: Z36.0 Encounter for antenatal screening for chromosomal anomalies (principal)
CPT/HCPCS: 76811

== ENCOUNTER 2021-12-28 21:24 | Outpatient (CLI) | payer OTHER, SELFPAY ==
[2021-12-28 21:29] VITALS: BMI 34.1
[2021-12-28 21:36] VITALS: BP 130/79; PULSE 72; RESP 19; TEMP 36.6; O2SAT 98; BMI 34.1
[2021-12-28 21:59] LABS: Microscopic, Urine URINE MICROSCOPIC (MICROSCOPIC)
[2021-12-28 22:08] LABS: Appearance,Urine CLEAR (Clear); Bilirubin,Urine Negative (Negative); Blood, Urine Negative (Negative); Color,Urine YELLOW (Yellow); Glucose,Urine (UA) Negative (Negative); Ketones,Urine Negative (Negative); Leukocyte Esterase,Urine Negative (Negative); Nitrate,Urine Negative (Negative); Protein,Urine TRACE (Negative); Specific Gravity, Urine >= 1.030 (1.005-1.030); Urobilinogen,Urine 0.2 EU/dl (0.2)
[2021-12-28 22:09] LABS: Amorphous Sediment,Urine Trace /lpf; Mucus,Urine 4+ /lpf
[2021-12-28 22:12] LABS: Barbiturates Screen,Urine Negative ng/ml (<200)
[2021-12-28 22:13] LABS: Amphetamine/Metha Screen,Urine Negative ng/ml (<1000); Benzodiazepines Screen,Urine Negative ng/ml (<200)
[2021-12-28 22:14] LABS: Cannabinoid Screen,Urine Negative ng/ml (<50)
[2021-12-28 22:14] LABS: Fetal Membrane Rupture (Rapid) Negative (Negative)
[2021-12-28 22:15] LABS: Cocaine Screen,Urine Negative ng/ml (<300); Methadone Screen,Urine Negative ng/ml (<300)
[2021-12-28 22:16] LABS: Opiate Screen,Urine Negative ng/ml (<300)
[2021-12-28 22:17] LABS: Phencyclidine Screen,Urine Negative ng/ml (<25)
== END 2021-12-28 23:00 | disposition home or self-care (01) ==
LOC: OBOUT 21:25 → OB 21:28
PROVIDERS: PCP Emergency Medicine; Visit Provider Obstetrics & Gynecology
DX: O26.892 Other specified pregnancy related conditions, second trimester (principal); Z3A.25 25 weeks gestation of pregnancy
CPT/HCPCS: 59025; 80305; 81001; 84112; G0463

== ENCOUNTER → 2022-01-15 10:07 | Outpatient (CLI) | payer OTHER, SELFPAY ==
[2022-01-15 10:51] LABS: Glucose,Fasting 87 mg/dl (74-100)
[2022-01-15 12:19] LABS: Glucose 1 Hour 116 mg/dL (74-100)
== END ==
PROVIDERS: Visit Provider Nurse Practitioner Obstetrics & Gynecology
DX: Z34.90 Encounter for supervision of normal pregnancy, unspecified, unspecified trimester (principal)
CPT/HCPCS: 36415; 82951

== ENCOUNTER → 2022-02-28 09:00 | Outpatient (CLI) | payer OTHER, SELFPAY ==
--- NOTE | 2022-02-28 09:12 | US_ITS ---
FINAL REPORT CLINICAL HISTORY: decreased movement sga FINDINGS: There is a single live intrauterine gestation. Presentation is breech. The cervix is closed and measures 3.1 cm. Placenta is posterior. activity and anatomy seen within normal limits. Heart rate is 150 beats per minute. AMNIOTIC FLUID: Appropriate amount. MEASUREMENTS: ULTRASOUND AGE: 34 weeks 0 days. GESTATION AGE: 34 weeks 4 days. ESTIMATED WEIGHT: 2279 g GROWTH PERCENTILE: 24% BPD: 8.37 cm consistent with 33 weeks 5 days. OFD: 10.99 cm consistent with 35 weeks 4 days. HC: 30.69 cm consistent with 34 weeks 2 days. AC: 29.60 cm consistent with 33 weeks 5 days. FL: 6.62 cm consistent with 34 weeks 1 day. HC/AC: 1.04 CI: 76% FL/BPD: 79% FL/AC: 22% IMPRESSION: Single living IUP with an ultrasound age of 34 weeks 0 days. Reviewed, Interpreted and Dictated by Garth Patel III, MD Transcribed by Yasmin Sy Authenticated by Garth Patel III, MD on 02/28/2022 01:35:47 PM [facility]
== END ==
PROVIDERS: PCP Emergency Medicine; Visit Provider Nurse Practitioner Obstetrics & Gynecology
DX: O36.8190 Decreased fetal movements, unspecified trimester, not applicable or unspecified (principal)
CPT/HCPCS: 76816

== ENCOUNTER → 2022-03-13 10:52 | Outpatient (CLI) | payer OTHER, SELFPAY ==
--- NOTE | 2022-03-13 11:05 | US_ITS ---
FINAL REPORT CLINICAL HISTORY: check position of the baby FINDINGS: TRANSABDOMINAL ULTRASOUND Single intrauterine is present. Cardiac activity is confirmed at 124 beats per minute. No anomalies seen. Appropriate amount of amnionic fluid is present. JACKIE: 10.68 Placental is fundal and posterior. Presentation is vertex. Cervix is unremarkable and 4.6 cm. MEASUREMENTS: ULTRASOUND AGE: 34 weeks 6 days. GESTATION AGE: 35 weeks 2 days. ESTIMATED WEIGHT: 2489 g GROWTH PERCENTILE: 31% BPD: 8.7 cm consistent with 35 weeks 2 days. OFD: 10.9 cm consistent with 35 weeks 0 days. HC: 31 cm consistent with 34 weeks 5 days. AC: 30.6 cm consistent with 34 weeks 4 days. FL: 6.8 cm consistent with 34 weeks 6 days. HC/AC: 1.01 CI: 80% FL/BPD: 78% FL/AC: 22% IMPRESSION: Single living IUP with an ultrasound age of 34 weeks 6 days. Reviewed, Interpreted and Dictated by Noelle Holland MD Transcribed by Davey Man Authenticated by Noelle Holland MD on 03/13/2022 02:56:33 PM [facility]
== END ==
PROVIDERS: PCP Emergency Medicine; Visit Provider Nurse Practitioner Obstetrics & Gynecology
DX: Z34.90 Encounter for supervision of normal pregnancy, unspecified, unspecified trimester (principal)
CPT/HCPCS: 76816

== ENCOUNTER → 2022-03-19 11:32 | Outpatient (CLI) | payer OTHER, SELFPAY | PROVIDERS: Visit Provider Nurse Practitioner Obstetrics & Gynecology | DX: Z34.90 Encounter for supervision of normal pregnancy, unspecified, unspecified trimester (principal); Z3A.36 36 weeks gestation of pregnancy | CPT/HCPCS: 86403 ==

== ENCOUNTER 2022-04-01 05:23 | Inpatient (IN) | payer OTHER, SELFPAY ==
[2022-04-01 05:27] VITALS: BMI 35.6
[2022-04-01 06:14] LABS: Coronavirus 19, PCR Not Detected (NotDetected); Influenza A, PCR Not Detected (NotDetected); Influenza B, PCR Not Detected (NotDetected); Microscopic, Urine URINE MICROSCOPIC (MICROSCOPIC)
[2022-04-01 06:17] LABS: Appearance,Urine CLEAR (Clear); Basophils # 0.1 K/mm3 (0-0.2); Basophils % 0.7 % (0.1-2.0); Bilirubin,Urine Negative (Negative); Blood, Urine Negative (Negative); Color,Urine YELLOW (Yellow); Eosinophils # 0.1 K/mm3 (0.0-0.4); Eosinophils % 0.9 % (0.1-12.0); Glucose,Urine (UA) Negative (Negative); Hematocrit 36.7 % (37.0-47.0); Hemoglobin 12.5 g/dL (12.2-16.2); Ketones,Urine Negative (Negative); Leukocyte Esterase,Urine Negative (Negative); Lymphocytes # 2.8 K/mm3 (0.7-4.5); Lymphocytes % 20.3 % (10-50); Mean Corpuscular HGB Conc 34.1 g/dL (31.8-35.4); Mean Corpuscular Hemoglobin 27.7 pg (27.0-31.2); Mean Corpuscular Volume 81.2 fl (81-99); Mean Platelet Volume 8.6 fl (7.4-10.4); Monocytes # 0.5 K/mm3 (0.1-1.0); Monocytes % 3.7 % (1.7-9.3); Neutrophils # 10.1 K/mm3 (1.8-7.8); Neutrophils % 74.5 % (37.0-80.0); Nitrate,Urine Negative (Negative); Platelet Count 280 K/mm3 (142-424); Protein,Urine Negative (Negative); Red Blood Count 4.51 M/mm3 (4.20-5.40); Red Cell Distribution Width 13.7 % (11.5-17.5); Specific Gravity, Urine 1.025 (1.005-1.030); Urobilinogen,Urine 0.2 EU/dl (0.2); White Blood Count 13.6 K/mm3 (4.8-10.8)
[2022-04-01 06:19] VITALS: BP 124/82; PULSE 80; RESP 17; TEMP 36.4; O2SAT 97; BMI 35.7
[2022-04-01 06:24] VITALS: BP 124/82; PULSE 80; RESP 17; TEMP 36.4; O2SAT 97
[2022-04-01 06:29] LABS: Amphetamine/Metha Screen,Urine Negative ng/ml (<1000)
[2022-04-01 06:30] LABS: Barbiturates Screen,Urine Negative ng/ml (<200)
[2022-04-01 06:31] LABS: Benzodiazepines Screen,Urine Negative ng/ml (<200); Cannabinoid Screen,Urine Negative ng/ml (<50)
[2022-04-01 06:32] LABS: Cocaine Screen,Urine Negative ng/ml (<300); Methadone Screen,Urine Negative ng/ml (<300)
[2022-04-01 06:33] LABS: Opiate Screen,Urine Negative ng/ml (<300)
[2022-04-01 06:34] LABS: Phencyclidine Screen,Urine Negative ng/ml (<25)
[2022-04-01 06:51] LABS: WBC,Urine Occasional #/hpf (0-3)
[2022-04-01 06:52] LABS: Bacteria,Urine 1+ /lpf
--- NOTE | 2022-04-01 07:41 | HMH.PHAINT ---
MEDICATION RECONCILIATION COMPLETED ON PATIENT USING EXTERNAL FILL HISTORY FROM PHARMACY. -MONICA FITZPATRICK, MARTINED
[2022-04-01 08:30] VITALS: BP 125/75; PULSE 73; RESP 17; TEMP 36.7; O2SAT 97
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
--- NOTE | 2022-04-01 09:16 | HMH.OBAPHP ---
OB - H&P: HPI Antepartum - History of Present Illness Chief complaint: Chronic hypertension on medication History of present illness: She is a 21-year-old 2 para 1 at 38+ weeks gestational age with chronic hypertension. She has been on nifedipine since 33 weeks. As result of this we are electing to induce her labor at term. - History of Present Criteria for establishing EDC:: LMP confirmed by 1st trimester US care: good care Ultrasounds: normal 1st trimester US, normal mid trimester US Obstetrical complications: gestational hypertension - Labs Blood type: O (+) positive Rubella: immune RPR/VDRL: nonreactive GBS status: negative HBsAG: negative [facility] History I have reviewed the patient's past medical history: Yes Medical History: Reports:: Anxiety, Depression Denies:: Cancer, Diabetes Mellitus Type 1, Diabetes Mellitus Type 2, Hyperlipidemia, Hypertension, MRSA, Seizures *Have you ever received a pneumonia vaccine?: No *Have you received a flu vaccine this season?: Yes Other Medical History: Reports: Other. Denies: Blood Transfusion Reaction Laterality Cases: Bilateral: Tonsillectomy Other Surgeries: Yes: Cholecystectomy, Sinus Surgery, Other. No: Amputation: No Fractures: No - *Social History Smoking Status: Never smoker Alcohol Intake: never Alcohol Intake Frequency:: other Substance Use Type: denies use *Occupational Status:: employed Housing: house Household Members: family, significant other *Travel in the last 8 weeks: None - Psychiatric History Pschychiatric History:: Reports:: Anxiety, Depression Family Hx:: Diabetes Para: 1 Review of Systems - Review of Systems Review of systems:: pertinent systems reviewed and negative unless documented below Meds Home Medications Medication Instructions Recorded Confirmed Type prenat.vits,avila,bpf-fjdl-hmnme 1 tab PO DAILY 09/04/21 04/01/22 History Ferrous Sulfate 325 mg PO DAILY 04/01/22 04/01/22 History NIFEdipine [Nifedipine ER] 30 mg PO DAILY 04/01/22 04/01/22 History Promethazine HCl [Phenergan 25mg 25 mg PO TIDP PRN 04/01/22 04/01/22 History tab] Allergies Allergy/AdvReac Type Severity Reaction Status Date / Time No Known Allergies Allergy Verified 03/26/22 09:57 OB - H&P: Exam - Physical Exam Vital signs: Temp Pulse Resp BP Pulse Ox 97.6 F 80 17 124/82 97 04/01/22 06:24 04/01/22 06:24 04/01/22 06:24 04/01/22 06:24 04/01/22 06:24 - Constitutional no acute distress - Routine HEENT Exam Head: Present: normocephalic Eye: Present: EOMI, PERRL ENT: Present: mucous membranes moist - Routine Neck Exam Present: supple, full ROM - Routine Respiratory Exam Absent: accessory muscle use (good air entry bilaterally), respiratory distress, wheezes, crackles - Routine Cardiovascular Exam Present: RRR. Absent: murmur - Routine Abdominal Exam Present: soft, normoactive bowel sounds. Absent: tenderness, distended, guarding - Routine Rectal Exam Patient deferred: visual exam, digital exam - Routine Exam Patient deferred: external exam, groin exam, perineal exam - Routine Extremities Exam Present: full ROM. Absent: cyanosis, edema - Routine Skin Exam Present: intact. Absent: cyanosis - Routine Neurological Exam Present: alert, oriented X3 - Routine Psychiatric Exam Present: normal affect OB - Results - Labs Labs: Short CBC 04/01/22 Range/Units 06:00 WBC 13.6 H (4.8-10.8) K/mm3 Hgb 12.5 (12.2-16.2) g/dL Hct 36.7 L (37.0-47.0) % Plt Count 280 (142-424) K/mm3 Urine 04/01/22 Range/Units 06:00 Urine Color Yellow (Yellow) Urine Appearance Clear (Clear) Urine pH 6.0 (5.0-8.5) Ur Specific [place] 1.025 (1.005-1.030) Urine Protein Negative (Negative) Urine Glucose (UA) Negative (Negative) OB - A/P Antepartum (1) Gestational hypertension Status: Acute - Additional Plan Planni
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
--- NOTE | 2022-04-01 13:26 | P.PN_ITS ---
[facility] Anesthesia Checklist - Patient Identification Patient Identification: Arm Band - Structural Data Admitted From: Inpatient Planned Operative Procedure/s: labor epidural Consent for Planned Operative Procedure(s) Verified: Yes Verified Documents: Surgical Consent, History and Physical - NPO Status Verified Time NPO: 00:00 - Additional verifications Anesthesia Reactions: No Hx Blood Transfusions: No Blood Transfusion Reaction: No - Airway Assessment C-Spine Mobility Assessed: Yes TMJ Mobility Assessed: Yes Dentition: Good Dentition - Neurological Assessment Level of Consciousness: Awake, Alert - Anesthesia Plan Anesthesia Risk discussed: Yes Anesthesia Plan: Verified ASA Class: II Anesthesia Type: Epidural [facility] History I have reviewed the patient's past medical history: Yes Medical History: Reports:: Anxiety, Depression Denies:: Cancer, Diabetes Mellitus Type 1, Diabetes Mellitus Type 2, Hyperlipidemia, Hypertension, MRSA, Seizures *Have you ever received a pneumonia vaccine?: No *Have you received a flu vaccine this season?: Yes Other Medical History: Reports: Other. Denies: Blood Transfusion Reaction Anesthesia experience/problems:: nac Laterality Cases: Bilateral: Tonsillectomy Other Surgeries: Yes: Cholecystectomy, Sinus Surgery, Other. No: Amputation: No Fractures: No - *Social History Smoking Status: Never smoker Alcohol Intake: never Alcohol Intake Frequency:: other Substance Use Type: denies use *Occupational Status:: employed Housing: house Household Members: family, significant other *Travel in the last 8 weeks: None - Psychiatric History Pschychiatric History:: Reports:: Anxiety, Depression Family Hx:: Diabetes Para: 1
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
--- NOTE | 2022-04-01 16:29 | HMH.DN ---
- Delivery Note Delivery Date:: 04/01/22 Delivery Time:: 15:48 Anesthesia Type: Epidural Was labor medically induced?: Yes Induction method: per misoprostol protocol Gestational age (weeks): 38 Infant delivered prior to 39 weeks?: Yes Justification for early elective delivery:: Gestational Hypertension Infant Gender: Male at 1 minute: 9 at 5 minutes: 9 Delivery Procedure:: She is a 21-year-old 2 para 1 at 38+ weeks gestational age. She has gestational hypertension has been on nifedipine for her blood pressure. As result of that we elected to induce her labor. She was started on IV oxytocin and then had her membranes ruptured. She progressed under labor epidural to full dilation and delivered spontaneously a liveborn male child at 3:48 PM in the afternoon of April 01, 2022. On deliver the head the anterior shoulder easily delivered followed by the rest the infant's body atraumatically. The baby was vigorous and we suction the mouth and nose. We allowed the cord to continue to pulsate for approximately 1 minute. The cord was then doubly clamped and cut and the was placed on the mother's abdomen for further care. The nurse assigned Apgars of 9 at 1 minute and 9 at 5 minutes. We then obtained cord blood. She received IV oxytocin using gentle traction on the cord and countertraction on the fundus I was able to easily deliver the placenta intact. He had a normal three-vessel cord. There were no perineal or vaginal lacerations. Estimated blood loss was approximately 100 cc. Placental Delivery Description: Spontaneous
[2022-04-02 07:07] LABS: Hematocrit 33.7 % (37.0-47.0); Hemoglobin 11.7 g/dL (12.2-16.2)
[2022-04-02 08:45] VITALS: BP 100/66; PULSE 64; RESP 18; TEMP 36.5; O2SAT 99
--- NOTE | 2022-04-02 09:37 | P.PN_ITS ---
Internal Medicine - PN: Subj *Date: 04/02/22 *Time: 09:37 Interval history: She is doing very well. She is eating and drinking and ambulating. She is breast-feeding. Her lochia is normal. Exam Vital signs and Labs for Last 24 Hours: Temp Pulse Resp BP Pulse Ox 98.0 F 73 17 125/75 97 04/01/22 08:30 04/01/22 08:30 04/01/22 08:30 04/01/22 08:30 04/01/22 08:30 Laboratory Results - last 24 hr 04/02/22 06:45: Hgb 11.7 L, Hct 33.7 L I & O for Last 24 hours: Intake & Output 03/30/22 03/31/22 04/01/22 04/02/22 11:59 11:59 11:59 11:59 Weight 228 lb - Constitutional no acute distress - *Routine HEENT Exam Head: Present: normocephalic Eye: Present: EOMI, PERRL ENT: Present: mucous membranes moist Assessment and Plan (1) Gestational hypertension Status: Acute Category: Medical Code(s): O13.9 - Gestational [- induced] hypertension without significant proteinuria, unspecified trimester (2) Normal delivery Status: Acute Category: Medical Code(s): O80 - Encounter for full-term un complicated delivery - Assessment and plan all Dx Assessment and Plan for all problems:: She is doing very well. We will plan to send her home tomorrow.
[2022-04-02 12:45] VITALS: BP 126/78; PULSE 64; RESP 17; TEMP 36.6; O2SAT 98
[2022-04-02 16:00] VITALS: BP 125/81; PULSE 74; RESP 18; TEMP 36.7; O2SAT 98
[2022-04-02 20:43] VITALS: BP 135/76; PULSE 71; RESP 18; TEMP 36.9; O2SAT 98
[2022-04-03 05:30] VITALS: BP 129/73; PULSE 85; RESP 18; TEMP 37.1; O2SAT 97
[2022-04-03 08:32] VITALS: BP 139/77; PULSE 72; RESP 16; TEMP 36.7; O2SAT 97
--- NOTE | 2022-04-03 09:30 | P.DS_ITS ---
General - General Admission date:: 04/01/22 Discharge date: 04/03/22 HPI - History of Present Illness History of present illness: She is a 21-year-old 2 para 1 at 38+ weeks gestational age. She had chronic hypertension on medication and as result of that she was brought in for induction of labor at term. Hospital Course Hospital Course: She was started on IV oxytocin had her membranes ruptured. Under labor epidural progressed to full dilation and delivered spontaneously a liveborn male child at 3:48 PM in the afternoon of April 01, 2022. The baby was a liveborn male child weighing 7 pounds 2 ounces with Apgars of 9 at 1 minute and 9 at 5 minutes. She has done well and has remained afebrile throughout her hospitalization. She is eating and drinking and ambulating. She is breast- feeding. Her lochia is normal. Her blood pressures have been creeping upward slightly and she will continue with her nifedipine 30 mg XL when she goes home. She has O Rh+ blood, she is rubella immune and was group B streptococcus negative. She is discharged home to follow-up with me in approximately 2 weeks time. She will continue with her vitamins and iron as well as her nifedipine. She was given the usual instructions with respect to limiting her activity, driving and sexual activity. Her plans to have a vasectomy. Her condition on discharge is stable and improved. Rhogam Administration: Not Indicated Objective Vital signs: Temp Pulse Resp BP Pulse Ox 98.0 F 72 16 139/77 97 04/03/22 08:32 04/03/22 08:32 04/03/22 08:32 04/03/22 08:32 04/03/22 08:32 no acute distress - *Routine HEENT Exam Head: Present: normocephalic Eye: Present: EOMI, PERRL ENT: Present: mucous membranes moist DS: Diagnosis - Discharge Diagnosis (1) Gestational hypertension Status: Acute (2) Normal delivery Status: Acute Discharge Plan - Patient Discharge Instructions ACTIVITY: No heavy lifting DIET: continue same diet Additional Instructions: *Nothing in the vagina for 6 weeks* *No heavy lifting* *No strenuous activity* Patient Instructions: Depression, Hemorrhage, DI for Labor and Delivery, Vaginal , DI for Pre-eclampsia, [facility] Post Discharge Instructions, Preventing the Spread of Coronavirus Discharge Instructions - Follow up Plan Follow up with: Khalif Lacy MD [Staff Physician] - Disposition: Home, Self-Care Condition at discharge:: Stable Home Medications: Home Medications Medication Instructions Recorded Confirmed Type prenat.vits,avila,zfp-fgaj-sesit 1 tab PO DAILY 09/04/21 04/01/22 History Ferrous Sulfate 325 mg PO DAILY 04/01/22 04/01/22 History Promethazine HCl [Phenergan 25mg 25 mg PO TIDP PRN 04/01/22 04/01/22 History tab] NIFEdipine [Nifedipine ER] 30 mg PO DAILY #30 tab 04/03/22 Rx Prescriptions/Medication Reconciliation: Continued prenat.vits,avila,mco-fwgr-xalfc 1 tab PO DAILY Ferrous Sulfate 325 mg PO DAILY Promethazine HCl [Phenergan 25mg tab] 25 mg PO TIDP PRN PRN Reason: nausea and vomiting NIFEdipine [Nifedipine ER] 30 mg PO DAILY #30 tab - Problem Reconciliation Problems Reviewed?: Yes
== END 2022-04-03 12:20 | disposition home or self-care (01) | DRG 807 ==
PROVIDERS: Admitting Provider Nurse Practitioner Obstetrics & Gynecology; PCP Emergency Medicine; Visit Provider Nurse Practitioner Obstetrics & Gynecology
DX: O10.02 Pre-existing essential hypertension complicating childbirth (principal); Z37.0 Single live birth; Z3A.38 38 weeks gestation of pregnancy
CPT/HCPCS: 59409; 36415; 59025; 80305; 81001; 85014; 85018; 85025; 86850; 94761; C1758; C9803; G0283; U0003; U0005

== ENCOUNTER 2022-10-02 15:25 | Emergency (ER) | payer OTHER, SELFPAY ==
--- NOTE | 2022-10-02 16:50 | EXP.UTC ---
Discharge Plan Disposition Patient Disposition: Home, Self-Care Condition: Good Prescriptions Prescriptions: New ooidyuyyocjxkje-qkportvgo-IE [Bromfed DM] 2-30-10 mg/5 mL Syrup 5 ml PO Q6H PRN (Reason: Cough) Qty: 240 0RF azithromycin [Zithromax] 250 mg tablet 250 mg PO UD DOSE PK Qty: 6 0RF Rx Instructions: Take two (2) tablets today, then one (1) tablet days #2 thru #5 methylprednisolone 4 mg Tablets,Dose Pack 4 mg PO DIRECTED Qty: 21 0RF Referrals Follow up/Referrals: Gabriel George MD [Primary Care Provider] - See instructions Activity Restrictions/Add. Instructions Additional Instructions/Restrictions: Drink plenty of fluids. Take tylenol or ibuprofen for pain or fever. Take the medications as directed. Follow up with your regular doctor. GO TO THE ER FOR ANY WORSENING SYMPTOMS Clinical Impressions Clinical Impression: Pharyngitis, Acute viral syndrome Stand Alone Forms Stand Alone Forms: Work/School Release Instructions Patient Instructions: DI for Pharyngitis/Tonsillopharyngitis -- Adult, DI for Viral Syndrome Discharge ED Provider: Roel Figueroa [facility] General Stated complaint: body aches, sore thrOAT, COUGH, CONGESTION Time Seen by Provider: 10/02/22 16:49 History of Present Illness Provider Complaint: She states that for the past 2 days she has had sore throat, chills, body aches and low grade fever. Related Data Previous Rx's Medication Instructions Recorded azithromycin 250 mg tablet 250 mg PO UD DOSE PK #6 tabs 10/02/22 (Zithromax) rkuxeuwkumsvgnj-gxbesmfjojwzkve-ER 5 ml PO Q6H PRN Cough #240 mL 10/02/22 2 mg-30 mg-10 mg/5 mL oral syrup (Bromfed DM) methylprednisolone 4 mg tablets in 4 mg PO DIRECTED #21 tabs 10/02/22 a dose pack Allergies Allergy/AdvReac Type Severity Reaction Status Date / Time No Known Allergies Allergy Verified 04/16/22 09:41 [facility] Disclaimer: The information contained in this section may have been updated after the patient was seen, as this information can be updated by other users. Medical History Anxiety Depression Surgical History History of cholecystectomy History of tonsillectomy Social History Smoking Status: Never smoker second hand exposure: No alcohol intake: never substance use type: denies use current occupational status: employed Travel in the last 8 weeks: None household members: significant other and family housing: house current occupation: [employer] current occupational exposures/hazards: No caffeine: Yes ROS Obtained: Yes All systems reviewed & no additional complaints except as documented Constitutional Constitutional: Reports chills and Reports fever(s) Eyes Eyes: Denies eye discharge ENT Ears, Nose, Mouth, and Throat: Reports as per HPI Cardiovascular Cardiovascular: Denies chest pain Respiratory Respiratory: Denies chest congestion and Reports cough Gastrointestinal Gastrointestingal: Reports nausea; Denies abdominal pain, constipation, cramping, diarrhea or vomiting Musculoskeletal Musculoskeletal: Denies arthralgias Integumentary/Breasts Skin/Breast: Denies rash Neurologic Neurologic: Denies paresthesias Physical Exam General General appearance: alert and in no apparent distress Head Head exam: atraumatic, normocephalic and normal inspection Eye Eye exam: Present normal appearance, PERRL and EOMI ENT ENT exam: Present mucous membranes moist and normal external ear exam Expanded ENT Exam TM/Canal exam: Bilateral TM: erythema and bulging Nose exam: Absent sinus tenderness Mouth exam: Present normal external inspection; Absent drooling Teeth exam: Present normal inspection Throat exam: Present tonsillar erythema, tonsillomegaly and tonsillar exudate Neck Neck exam: Presen
[2022-10-02 17:00] VITALS: BP 131/86; PULSE 109; RESP 19; TEMP 36.9; O2SAT 98; BMI 30.2
[2022-10-02 17:28] LABS: UTC Strep Screen (Rapid) Negative (Negative)
[2022-10-02 17:38] LABS: Adenovirus,PCR Not Detected (NotDetected); Bordetella Pertussis Not Detected (NotDetected); Chlamydophila Pneumoniae, PCR Not Detected (NotDetected); Coronavirus 19, PCR Not Detected (NotDetected); Coronavirus 229E Not Detected (NotDetected); Coronavirus NL63 Not Detected (NotDetected); Coronavirus OC43 Not Detected (NotDetected); Coronovirus HKU1,PCR Not Detected (NotDetected); Human Metapneumovirus Not Detected (NotDetected); Influenza A, PCR Not Detected (NotDetected); Influenza AH1, 2009 Not Detected (NotDetected); Influenza AH1, PCR Not Detected (NotDetected); Influenza B, PCR Not Detected (NotDetected); Mycoplasma Pneumoniae, PCR Not Detected (NotDetected); Parainfluenza 1, PCR Not Detected (NotDetected); Parainfluenza 2, PCR Not Detected (NotDetected); Parainfluenza 3, PCR Not Detected (NotDetected); Parainfluenza 4, PCR Not Detected (NotDetected); Respiratory Syncytial Virus Not Detected (NotDetected); Rhinovirus/Enterovirus Not Detected (NotDetected)
[2022-10-02 17:40] VITALS: BP 131/86; PULSE 109; RESP 19; TEMP 36.9; O2SAT 98
[2022-10-03 15:25] LABS: Influenza AH3,PCR Detected (NotDetected)
== END 2022-10-02 17:44 | disposition home or self-care (01) ==
PROVIDERS: Emergency Provider Nurse Practitioner Family; PCP Emergency Medicine
DX: J10.1 Influenza due to other identified influenza virus with other respiratory manifestations (principal)
CPT/HCPCS: 87581; 87632; 87798; 87880; 99212; C9803; G0463; U0003; U0005

== ENCOUNTER 2022-10-29 19:28 | Emergency (ER) | payer OTHER, SELFPAY ==
[2022-10-29 19:28] VITALS: BP 122/75; PULSE 104; RESP 16; TEMP 36.7; O2SAT 97; BMI 28.0
[2022-10-29 19:40] VITALS: BP 127/73; PULSE 109; O2SAT 99
[2022-10-29 19:50] VITALS: BP 134/77
[2022-10-29 20:01] VITALS: BP 120/72
[2022-10-29 20:05] LABS: Microscopic, Urine URINE MICROSCOPIC (MICROSCOPIC)
[2022-10-29 20:09] LABS: Basophils # 0.2 K/mm3 (0-0.2); Eosinophils # 0.3 K/mm3 (0.0-0.4); Eosinophils % 1.9 % (0.1-12.0); Hemoglobin 15.2 g/dL (12.2-16.2); Lymphocytes # 1.5 K/mm3 (0.7-4.5); Lymphocytes % 9.4 % (10-50); Mean Corpuscular Hemoglobin 26.4 pg (27.0-31.2); Mean Corpuscular Volume 80.2 fl (81-99); Mean Platelet Volume 8.3 fl (7.4-10.4); Monocytes # 0.6 K/mm3 (0.1-1.0); Monocytes % 3.8 % (1.7-9.3); Neutrophils # 13.3 K/mm3 (1.8-7.8); Neutrophils % 83.9 % (37.0-80.0); Platelet Count 383 K/mm3 (142-424); Red Blood Count 5.74 M/mm3 (4.20-5.40); Red Cell Distribution Width 13.7 % (11.5-17.5); White Blood Count 15.9 K/mm3 (4.8-10.8)
[2022-10-29 20:11] LABS: MANUAL DIFFERENTIAL MANUAL DIFFERENTIAL (MANUAL DIFF)
[2022-10-29 20:12] LABS: Appearance,Urine CLEAR (Clear); Blood, Urine Negative (Negative); Color,Urine DK YELLOW (Yellow); Glucose,Urine (UA) Negative (Negative); Ketones,Urine TRACE (Negative); Leukocyte Esterase,Urine Negative (Negative); Nitrate,Urine Negative (Negative); PH,Urine 5.5 (5.0-8.5); Protein,Urine TRACE (Negative); Specific Gravity, Urine >= 1.030 (1.005-1.030); Urobilinogen,Urine 0.2 EU/dl (0.2)
[2022-10-29 20:21] LABS: Chloride 104 mmol/L (98-107); Potassium 3.9 mmoL/L (3.5-5.1); Sodium 141 mmol/L (136-145)
[2022-10-29 20:24] LABS: Alanine Aminotransferase 61 U/L (12-78); Albumin/Globulin Ratio 1.3 (1.1-1.8); Alkaline Phosphatase 156 U/L (38-126); Anion Gap 16.9 mEq/L (5-15); Aspartate Amino Transferase 46 U/L (14-36); Bilirubin,Total 1.2 mg/dl (0.2-1.3); Blood Urea Nitrogen 10 mg/dl (7-17); Calcium 9.5 mg/dl (8.4-10.2); Carbon Dioxide 24 mmol/L (22.0-30.0); Creatinine Clearance Estimated 200 mL/min (50-200); Estimated Glomerular Filt Rate 125 ml/min (>60); GFR (African American) 151 ML/MIN (>60); Globulin 3.8 g/dL (1.3-3.2); Glucose 102 mg/dl (74-100); Total Protein,Serum 8.8 g/dl (6.3-8.2)
[2022-10-29 20:32] LABS: Urine Pregnancy, HCG Qual. Negative (Negative)
[2022-10-29 20:36] LABS: Bilirubin,Urine 1+ (Negative)
[2022-10-29 21:21] LABS: RBC,Urine Occasional #/hpf (0-3); WBC,Urine Occasional #/hpf (0-3)
[2022-10-29 21:22] LABS: Bacteria,Urine Trace /lpf
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
[2022-10-29 21:40] LABS: Lymphocytes % 13 % (10-50); Monocytes % 1 % (2-9); Neutrophils % 86 % (42-76); Platelet Estimate Normal; RBC Morphology Normal; Total Cells Counted 100
[2022-10-29 21:44] VITALS: BP 124/74; PULSE 104; RESP 16; TEMP 36.7; O2SAT 97
== END 2022-10-29 21:48 | disposition home or self-care (01) ==
PROVIDERS: Emergency Provider Emergency Medicine; PCP Emergency Medicine
DX: K52.9 Noninfective gastroenteritis and colitis, unspecified (principal); F41.9 Anxiety disorder, unspecified
CPT/HCPCS: 80053; 81001; 81025; 85007; 85025; 96361; 96374; 96375; 99285; J2405

== ENCOUNTER → 2023-05-26 15:48 | Outpatient (CLI) | payer BC, OTHER, SELFPAY ==
[2023-05-26 17:54] LABS: HCG,Quantitative 1307 mIU/ml (0-5.42)
[2023-05-28 08:53] LABS: Progesterone 15.5 ng/mL (.)
== END ==
PROVIDERS: PCP Emergency Medicine; Visit Provider Nurse Practitioner Obstetrics & Gynecology
DX: N92.6 Irregular menstruation, unspecified (principal); Z32.00 Encounter for pregnancy test, result unknown
CPT/HCPCS: 36415; 84144; 84702

== ENCOUNTER 2024-07-11 13:15 | Outpatient (CLI) | payer BC, SELFPAY ==
[2024-07-12 00:30] LABS: HCG,Quantitative 31683 mIU/ml (0-5.42)
== END 2024-07-11 23:59 | disposition home or self-care (01) ==
PROVIDERS: PCP Physician Assistant; Visit Provider Nurse Practitioner Obstetrics & Gynecology
DX: Z34.90 Encounter for supervision of normal pregnancy, unspecified, unspecified trimester (principal)
CPT/HCPCS: 36415; 84144; 84702

== ENCOUNTER 2024-07-25 11:10 | Outpatient (CLI) | payer BC, SELFPAY | END 2024-07-25 23:59 | disposition home or self-care (01) | LOC: LAB.DROPOF 07-26 09:06 | PROVIDERS: PCP Nurse Practitioner Obstetrics & Gynecology; Visit Provider Nurse Practitioner Obstetrics & Gynecology | DX: Z34.90 Encounter for supervision of normal pregnancy, unspecified, unspecified trimester (principal) | CPT/HCPCS: 87086 ==

== ENCOUNTER 2024-07-27 13:32 | Outpatient (CLI) | payer BC, SELFPAY ==
--- NOTE | 2024-07-27 13:32 | US_ITS ---
PROCEDURE: US OB <= 14 WEEKS FETUS CLINICAL INDICATION: Dates and viability/confirmatoin of COMPARISON: No exams were available for comparison FINDINGS: Transvaginal sonographic images of the pelvis were obtained. From her last menstrual period she is 7weeks 2days. An intrauterine gestational sac is present with a pole with a crown-rump length of 2.1cm This correlates to a gestational age of 8weeks 6days. JUAN 03/02/2025 heart tones are present with an FHR of 181bpm. Yolk sac is noted. The yolk sac measures 6.1mm. There appears to be a small subchorionic hemorrhage inferior to the amniotic sac. The right ovary is seen and appears normal. There is a follicle in the right ovary measuring 1.6 cm. The left ovary is seen and appears normal. Corpus luteum is seen within the left ovary and measures 1.7 cm. There is no fluid in the cul-de-sac. IMPRESSION: 1. Viable fetus within the uterine cavity with heart rate activity seen. 2. Fetus measures 8 weeks and 6 days. Her due date should be revised and will be 03/02/2025. 3. There is a small subchorionic hemorrhage seen. 4. Both ovaries are seen and appear normal. There is a corpus luteum on the left ovary. 5. No fluid in the cul-de-sac. Dictated by: Khalif Lacy MD 07/27/2024 15:21 Khalif Lacy MD in OV 07/27/2024 15:21
== END 2024-07-27 23:59 | disposition home or self-care (01) ==
PROVIDERS: PCP Physician Assistant; Visit Provider Nurse Practitioner Obstetrics & Gynecology
DX: O36.80X0 Pregnancy with inconclusive fetal viability, not applicable or unspecified (principal); Z3A.01 Less than 8 weeks gestation of pregnancy
CPT/HCPCS: 76801

== ENCOUNTER 2024-08-17 15:37 | Outpatient (CLI) | payer BC, SELFPAY ==
--- NOTE | 2024-08-17 15:44 | US_ITS ---
PROCEDURE: US OB <= 14 WEEKS FETUS CLINICAL INDICATION: bleeding affecting early COMPARISON: US US OB <= 14 WEEKS FETUS from 07/27/2024 FINDINGS: Transvaginal sonographic images of the pelvis were obtained. From her last menstrual period she is 11weeks 6days. An intrauterine gestational sac is present with a pole with a crown-rump length of 5.1cm This correlates to a gestational age of 11weeks 6days. JUAN 03/02/2025 heart tones are present with an FHR of 153bpm. Yolk sac is noted. The yolk sac measures 5.6mm. Possible small subchorionic hemorrhage is noted. The right ovary is seen and appears normal. The left ovary is seen and appears normal. There is no fluid in the cul-de-sac. IMPRESSION: 1. Viable fetus within the uterine cavity. 2. There has been good interval growth with the fetus currently 11 weeks 6 days. JUAN 03/02/2025 3. There is a small subchorionic hemorrhage seen which may account for her bleeding. 4. Both ovaries are seen and appear normal. 5. No fluid in the cul-de-sac. Dictated by: Khalif Lacy MD 08/18/2024 08:05 Khalif Lacy MD in OV 08/18/2024 08:05
== END 2024-08-17 23:59 | disposition home or self-care (01) ==
LOC: RAD 15:38
PROVIDERS: Visit Provider Obstetrics & Gynecology
DX: O20.9 Hemorrhage in early pregnancy, unspecified (principal); Z3A.12 12 weeks gestation of pregnancy
CPT/HCPCS: 76801

== ENCOUNTER 2024-08-19 12:10 | Outpatient (CLI) | payer BC, SELFPAY ==
[2024-08-19 12:36] LABS: Basophils # 0.1 K/mm3 (0-0.2); Basophils % 0.6 % (0.1-2.0); Eosinophils # 0.1 K/mm3 (0.0-0.4); Hematocrit 40.7 % (37.0-47.0); Hemoglobin 14.2 g/dL (12.2-16.2); Lymphocytes # 2.5 K/mm3 (0.7-4.5); Lymphocytes % 21.1 % (10-50); Mean Corpuscular HGB Conc 34.9 g/dL (31.8-35.4); Mean Corpuscular Hemoglobin 27.9 pg (27.0-31.2); Mean Platelet Volume 7.3 fl (7.4-10.4); Monocytes # 0.6 K/mm3 (0.1-1.0); Monocytes % 4.8 % (1.7-9.3); Neutrophils # 8.7 K/mm3 (1.8-7.8); Neutrophils % 72.6 % (37.0-80.0); Platelet Count 293 K/mm3 (142-424); Red Blood Count 5.08 M/mm3 (4.20-5.40); Red Cell Distribution Width 13.3 % (11.5-17.5)
[2024-08-19 22:56] LABS: HIV (1&2) Antibody Rapid NONREACTIVE (NONREACTIVE)
[2024-08-20 05:11] LABS: HCV Ab Non Reactive (Non Reactive); Hepatitis B Surface Antigen Negative (Negative)
[2024-08-20 07:29] LABS: Rubella Antibodies, IgG 8.06 index (Immune >0.99)
[2024-08-20 11:29] LABS: Rapid Plasma Reagin Ab Titer Non Reactive titer (NonRea<1:1)
== END 2024-08-19 23:59 | disposition home or self-care (01) ==
LOC: LAB 12:12
PROVIDERS: PCP Family Medicine; Visit Provider Nurse Practitioner Obstetrics & Gynecology
DX: Z34.90 Encounter for supervision of normal pregnancy, unspecified, unspecified trimester (principal)
CPT/HCPCS: 36415; 85025; 86593; 86762; 86803; 86850; 87340; 87389

== ENCOUNTER 2024-08-30 09:54 | Outpatient (CLI) | payer BC, SELFPAY ==
--- NOTE | 2024-08-30 09:56 | US_ITS ---
PROCEDURE: US OB <= 14 WEEKS FETUS CLINICAL INDICATION: Bleeding in Early COMPARISON: US US OB <= 14 WEEKS FETUS from 07/27/2024 US US OB <= 14 WEEKS FETUS from 08/17/2024 FINDINGS: Transabdominal sonographic images of the pelvis were obtained. The following parameters are obtained: From her established due date she is 13weeks 5days Viable fetus in the cephalic presentation with an anterior placenta grade 1. There appears to be a small subchorionic hemorrhage at the internal os. heart rate: 149bpm bpm. Average ultrasound age 14 weeks 1 day, JUAN will remain 03/02/2025 BPD: 14weeks 3days HC: 14weeks 2days AC: 13weeks 6days FL: 13weeks 4days HC/AC: 1.28 FL/BPD: 0.47 FL/AC: 0.16 Growth percentile: 32 Amniotic fluid: Appears normal Right ovary measures 2.2 cm x 1.0 cm x 2.3 cm There are several small peripheral follicles. Left ovary is not visualized well. No obvious anomalies evident. Cord insertion, four-chamber heart, appear normal. IMPRESSION: 1. Viable fetus within the uterine cavity in the cephalic presentation. Placenta is anterior grade 1. 2. There continues to be a small subchorionic hemorrhage at the internal os. 3. The fluid is within normal limits. 4. The size is consistent with the dates. JUAN will remain 03/02/2025 5. Very limited anatomical scan appears normal. Dictated by: Khalif Lacy MD 08/30/2024 12:20 Khalif Lacy MD in [place] 08/30/2024 12:20
== END 2024-08-30 23:59 | disposition home or self-care (01) ==
LOC: RAD 09:55
PROVIDERS: PCP Nurse Practitioner Obstetrics & Gynecology; Visit Provider Nurse Practitioner Obstetrics & Gynecology
DX: O20.9 Hemorrhage in early pregnancy, unspecified (principal)
CPT/HCPCS: 76801

== ENCOUNTER 2024-10-18 09:06 | Outpatient (CLI) | payer BC, SELFPAY ==
--- NOTE | 2024-10-18 09:07 | US_ITS ---
PROCEDURE: US OB /MATERNAL DETAIL CLINICAL INDICATION: 20 week + Anatomy Scan-Complete COMPARISON: US US OB <= 14 WEEKS FETUS from 07/27/2024 US US OB <= 14 WEEKS FETUS from 08/17/2024 US US OB <= 14 WEEKS FETUS from 08/30/2024 FINDINGS: Transabdominal sonographic images of the pelvis were obtained. From her established due date she is 20 weeks 5 days. Single viable intrauterine gestation. Breech position. Placenta: Anteriorplacenta grade 1. There is an average amount of fluid. The cervix appears satisfactory. Closed and measuring 3.41 cm in length. Complete survey performed and was unremarkable on the submitted images as in PACS. No discrete anomalies identified on survey imaging by technologist. Active fetus. Three-vessel cord with satisfactory umbilical cord insertion. 4- chamber heart noted. [place], aortic arch, LVOT, RVOT, three-vessel view appear normal. Not seen well due to position. Survey of brain & ventricles Unremarkable. Cerebellum, thalamus, choroid plexus, cisterna magna appear normal. Face and neck survey unremarkable. Lips and nose appeared normal. Profile not well visualized due to position. Diaphragm and chest views unremarkable. Abdomen: Both kidneys noted and unremarkable. Stomach and bladder noted and satisfactory. Spine: Survey of the spine satisfactory with no anomalies identified nor imaged. Cervical, thoracic, lower spine appear normal. Both arms and legs noted. Amniotic Fluid: Adequate. MVP 4.45 cm Measurements: Average ultrasound age 20weeks 4days. Estimated due date by ultrasound age 0503/03/2025. Estimated weight 380g BPD = 19weeks 6days HC = 20weeks 2days AC = 21weeks 1day FL = 20weeks 6days Growth Percentile= 51 Heart Rate = 146bpm Cerebellum = 19weeks 3days Humerus = 20weeks 5days HC/AC is 1.11 FL/BPD is 0.75 FL/AC is 0.21 IMPRESSION: 1. Viable fetus in the breech presentation with an anterior placenta grade 1. 2. The fluid is within normal limits with an MVP 4.45 cm. 3. Anatomical scan appears normal. 4. Cardiac views and profile views were not well visualized. Suggest repeat scan in 2-3 weeks. 5. biometry is consistent with the dates. Dictated by: Khalif Lacy MD 10/19/2024 08:31 Khalif Lacy MD in [place] 10/19/2024 08:31
== END 2024-10-18 23:59 | disposition home or self-care (01) ==
LOC: RAD 09:07
PROVIDERS: PCP Nurse Practitioner Obstetrics & Gynecology; Visit Provider Nurse Practitioner Obstetrics & Gynecology
DX: O20.9 Hemorrhage in early pregnancy, unspecified (principal); Z36.3 Encounter for antenatal screening for malformations; Z3A.20 20 weeks gestation of pregnancy
CPT/HCPCS: 76811

== ENCOUNTER 2024-11-08 09:24 | Outpatient (CLI) | payer BC, SELFPAY ==
--- NOTE | 2024-11-08 09:24 | US_ITS ---
PROCEDURE: US OB FOLLOW UP CLINICAL INDICATION: f/u Profile scan, incomplete due to baby position COMPARISON: US US OB <= 14 WEEKS FETUS from 07/27/2024 US US OB <= 14 WEEKS FETUS from 08/17/2024 US US OB <= 14 WEEKS FETUS from 08/30/2024 US US OB /MATERNAL DETAIL from 10/18/2024 FINDINGS: Transabdominal sonographic images of the pelvis were obtained. The following parameters are obtained: From her established due date she is 23weeks 5days Viable fetus in the cephalic presentation with an anterior placenta grade 1. There is a placental Dasilva. The cervix measures 4.79 cm heart rate: 144bpm bpm. BPD: 23weeks 2days HC: 23weeks 0 days AC: 24weeks 6days FL: 24weeks 5days HC/AC: 1.03 FL/BPD: 0.79 FL/AC: 0.22 Growth percentile: 75 Amniotic fluid: MVP 6.31 cm No obvious anomalies evident. profile seen, nasion, stomach, bladder, kidneys, three-vessel cord, four chamber heart appear normal. Cardiac views: Four-chamber heart appears normal IMPRESSION: 1. Viable fetus in the cephalic presentation with an anterior placenta grade 1. There is a placental Dasilva seen. 2. The fluid is within normal limits with an MVP 6.31 cm. 3. There has been good interval growth with the fetus currently 75th percentile. 4. Limited anatomical scan appears normal. Profile views and cardiac four-chamber heart appears normal. Dictated by: Khalif Lacy MD 11/08/2024 10:47 Khalif Lacy MD in [place] 11/08/2024 10:47
== END 2024-11-08 23:59 | disposition home or self-care (01) ==
LOC: RAD 09:24
PROVIDERS: PCP Nurse Practitioner Obstetrics & Gynecology; Visit Provider Obstetrics & Gynecology
DX: Z34.92 Encounter for supervision of normal pregnancy, unspecified, second trimester (principal); Z3A.32 32 weeks gestation of pregnancy; Z36.2 Encounter for other antenatal screening follow-up
CPT/HCPCS: 76816

== ENCOUNTER 2024-11-29 22:42 | Outpatient (CLI) | payer BC, SELFPAY ==
[2024-11-29 22:48] VITALS: BMI 30.7
[2024-11-29 22:56] LABS: Microscopic, Urine URINE MICROSCOPIC (MICROSCOPIC)
[2024-11-29 22:58] LABS: Appearance,Urine CLEAR (Clear); Bilirubin,Urine Negative (Negative); Blood, Urine Negative (Negative); Color,Urine YELLOW (Yellow); Glucose,Urine (UA) Negative (Negative); Ketones,Urine Negative (Negative); Leukocyte Esterase,Urine Negative (Negative); Nitrate,Urine Negative (Negative); Protein,Urine Negative (Negative); Urobilinogen,Urine 0.2 EU/dl (0.2)
[2024-11-29] MEDS: DEXTROSE 5%-LACTATED RINGERS 1,000 ML 999 ML IV (23:05)
[2024-11-29 23:09] LABS: Amorphous Sediment,Urine 3+ /lpf; Bacteria,Urine 1+ /lpf; Mucus,Urine 1+ /lpf
[2024-11-29 23:11] LABS: Amphetamine/Metha Screen,Urine Negative ng/ml (<1000); Barbiturates Screen,Urine Negative ng/ml (<200)
[2024-11-29 23:12] LABS: Benzodiazepines Screen,Urine Negative ng/ml (<200)
[2024-11-29 23:12] LABS: Basophils # 0.1 K/mm3 (0-0.2); Basophils % 0.4 % (0.1-2.0); Eosinophils # 0.1 K/mm3 (0.0-0.4); Eosinophils % 0.6 % (0.1-12.0); Hematocrit 36.1 % (37.0-47.0); Hemoglobin 12.3 g/dL (12.2-16.2); Lymphocytes # 2.6 K/mm3 (0.7-4.5); Lymphocytes % 18.4 % (10-50); Mean Corpuscular HGB Conc 34.1 g/dL (31.8-35.4); Mean Corpuscular Hemoglobin 27.6 pg (27.0-31.2); Mean Corpuscular Volume 80.9 fl (81-99); Mean Platelet Volume 9.4 fl (7.4-10.4); Monocytes # 0.8 K/mm3 (0.1-1.0); Monocytes % 5.8 % (1.7-9.3); Neutrophils # 10.5 K/mm3 (1.8-7.8); Platelet Count 276 K/mm3 (142-424); Red Blood Count 4.46 M/mm3 (4.20-5.40); Red Cell Distribution Width 12.7 % (11.5-17.5); White Blood Count 14.2 K/mm3 (4.8-10.8)
[2024-11-29 23:13] LABS: Cannabinoid Screen,Urine Negative ng/ml (<50); Cocaine Screen,Urine Negative ng/ml (<300)
[2024-11-29 23:14] LABS: Albumin Level 3.7 g/dl (3.5-5.0); Chloride 106 mmol/L (98-107)
[2024-11-29 23:14] LABS: Methadone Screen,Urine Negative ng/ml (<300)
[2024-11-29 23:15] LABS: Sodium 137 mmol/L (136-145)
[2024-11-29 23:15] LABS: Opiate Screen,Urine Negative ng/ml (<300); Phencyclidine Screen,Urine Negative ng/ml (<25)
[2024-11-29 23:17] LABS: Alanine Aminotransferase 17 U/L (12-78); Aspartate Amino Transferase 25 U/L (14-36); Blood Urea Nitrogen 7 mg/dl (7-17); Carbon Dioxide 23 mmol/L (22.0-30.0); Creatinine Clearance Estimated 320 mL/min (50-200); Estimated Glomerular Filt Rate 194 ml/min (>60); GFR (African American) 235 ML/MIN (>60)
[2024-11-29 23:18] LABS: Albumin/Globulin Ratio 1.2 (1.1-1.8); Alkaline Phosphatase 116 U/L (38-126); Bilirubin,Total 0.2 mg/dl (0.2-1.3); Globulin 3.1 g/dL (1.3-3.2); Glucose 87 mg/dl (74-100); Total Protein,Serum 6.8 g/dl (6.3-8.2)
[2024-11-29 23:22] VITALS: BP 132/87; PULSE 68; RESP 18; TEMP 36.6; O2SAT 98; BMI 30.7
== END 2024-11-30 00:45 | disposition home or self-care (01) ==
LOC: OBOUT 22:44 → OB 22:45
PROVIDERS: Nurse Practitioner Obstetrics & Gynecology; Visit Provider Obstetrics & Gynecology
DX: O36.8120 Decreased fetal movements, second trimester, not applicable or unspecified (principal); Z3A.26 26 weeks gestation of pregnancy
CPT/HCPCS: 80053; 80307; 81001; 85025; G0463

== ENCOUNTER 2024-12-05 08:10 | Outpatient (CLI) | payer BC, SELFPAY ==
[2024-12-05 09:47] LABS: Basophils # 0.1 K/mm3 (0-0.2); Basophils % 0.5 % (0.1-2.0); Eosinophils # 0.2 K/mm3 (0.0-0.4); Eosinophils % 1.7 % (0.1-12.0); Hematocrit 35.2 % (37.0-47.0); Hemoglobin 11.9 g/dL (12.2-16.2); Lymphocytes # 2.8 K/mm3 (0.7-4.5); Lymphocytes % 19.8 % (10-50); Mean Corpuscular HGB Conc 33.8 g/dL (31.8-35.4); Mean Corpuscular Hemoglobin 27.7 pg (27.0-31.2); Mean Corpuscular Volume 82.1 fl (81-99); Mean Platelet Volume 9.5 fl (7.4-10.4); Monocytes # 0.8 K/mm3 (0.1-1.0); Monocytes % 5.7 % (1.7-9.3); Neutrophils # 10.1 K/mm3 (1.8-7.8); Neutrophils % 71.3 % (37.0-80.0); Platelet Count 277 K/mm3 (142-424); Red Blood Count 4.29 M/mm3 (4.20-5.40); Red Cell Distribution Width 12.9 % (11.5-17.5); White Blood Count 14.2 K/mm3 (4.8-10.8)
[2024-12-05 09:54] LABS: Glucose 1 Hour 94 mg/dL (74-100)
[2024-12-05 15:13] LABS: RPR W/RFX Titers Nonreactive (Nonreactive)
== END 2024-12-05 23:59 | disposition home or self-care (01) ==
LOC: LAB 08:11
PROVIDERS: Visit Provider Nurse Practitioner Obstetrics & Gynecology
DX: Z34.82 Encounter for supervision of other normal pregnancy, second trimester (principal)
CPT/HCPCS: 36415; 82947; 85025; 86592

== ENCOUNTER 2025-01-19 13:50 | Outpatient (CLI) | payer BC, SELFPAY ==
--- NOTE | 2025-01-19 13:45 | US_ITS ---
PROCEDURE: US OB BIOPHYSICAL PROFILE CLINICAL INDICATION: BPP/Growth/SD with Cervical Length-SGA COMPARISON: US US OB <= 14 WEEKS FETUS from 08/17/2024 US US OB <= 14 WEEKS FETUS from 08/30/2024 US US OB /MATERNAL DETAIL from 10/18/2024 US US OB FOLLOW UP from 11/08/2024 US US OB TRANSVAGINAL from 01/19/2025 FINDINGS: Transabdominal sonographic images of the uterus were obtained. From her established due date she is 34weeks 0 days. The following parameters are obtained: Viable Fetus in the cephalic presentation with an anterior placenta grade 2. There are multiple placental lakes along the inferior aspect of the placenta. There is a small placental Dasilva on the inferior aspect of the placental base. There does not appear to be any blood flow through this fluid-filled area. It measures 2.43 cm x 0.46 cm. Average ultrasound age is 33weeks 4days Estimated weight 2,203g, 4 lb 14 oz Measurements: heart Rate = 140bpm BPD = 33weeks 2days, 24 percentile HC = 33weeks 5days, 11 percentile AC = 33weeks 2days, 31 percentile FL = 34weeks 0 days, 38 percentile HC/AC is 1.04 FL/BPD is 0.8 FL/AC is 0.23 28 percentile Amniotic fluid index: 9.73cm, MVP 3.03 cm. Qualitative AFV:2 Breathing movements: 2 Gross Body Movements: 2 Tone: 2 Biophysical profile score: 8 Doppler evaluation of the umbilical artery: SD ratio: 2.58-3.33 Resistive index: 0.61 No obvious anomalies evident.Kidneys, stomach, bladder, diaphragm, four-chamber heart three-vessel cord appear normal. IMPRESSION: 1. Viable fetus in the cephalic presentation with an anterior placenta grade 2. 2. There are multiple placental lakes along the inferior aspect of the placenta as well as within the body of the placenta. There is a small placental Dasilva along the base of the placenta. 3. The fluid is within normal limits with an amniotic fluid index 9.73 cm, MVP 3.03 cm 4. Biophysical profile is 8/8 with good breathing movement and movement seen. 5. SD ratio is normal 2.58-3.33. 6. There has been good interval growth with the fetus currently 28th percentile. 7. Limited anatomical scan appears normal. Dictated by: Khalif Lacy MD 01/19/2025 15:23 Khalif Lacy MD in [place] 01/19/2025 15:23
--- NOTE | 2025-01-19 14:30 | US_ITS ---
PROCEDURE: US OB TRANSVAGINAL CLINICAL INDICATION: BPP/Growth/SD with Cervical Length-SGA COMPARISON: US US OB <= 14 WEEKS FETUS from 08/17/2024 US US OB <= 14 WEEKS FETUS from 08/30/2024 US US OB /MATERNAL DETAIL from 10/18/2024 US US OB FOLLOW UP from 11/08/2024 FINDINGS: Transvaginal sonographic images of the pelvis were obtained. The fetus in the cephalic presentation at the time of transvaginal ultrasound The cervix is visualized and measures 3.20 cm-3.33 cm in length. There does not appear to be any evidence of funneling of the cervix. There is a small amount of fluid within the cervical canal. IMPRESSION: 1. Fetus is in the cephalic presentation and the head is seen against the cervix. 2. Cervix measures 3.20 cm-3.33 cm in length. 3. There is no evidence of funneling of the cervix. 4. There is a small amount of fluid within the cervical canal. Dictated by: Khalif Lacy MD 01/19/2025 15:02 Khalif Lacy MD in [place] 01/19/2025 15:02
== END 2025-01-19 23:59 | disposition home or self-care (01) ==
LOC: RAD 13:51
PROVIDERS: PCP Nurse Practitioner Obstetrics & Gynecology; Visit Provider Nurse Practitioner Obstetrics & Gynecology
DX: Z36.86 Encounter for antenatal screening for cervical length (principal); O36.5930 Maternal care for other known or suspected poor fetal growth, third trimester, not applicable or unspecified; Z3A.34 34 weeks gestation of pregnancy
CPT/HCPCS: 76816; 76817; 76819; 76820

== ENCOUNTER 2025-01-31 11:30 | Outpatient (CLI) | payer BC, SELFPAY | END 2025-01-31 23:59 | disposition home or self-care (01) | LOC: LAB.DROPOF 02-01 11:11 | PROVIDERS: PCP Nurse Practitioner Obstetrics & Gynecology; Visit Provider Nurse Practitioner Obstetrics & Gynecology | DX: Z34.83 Encounter for supervision of other normal pregnancy, third trimester (principal); Z3A.35 35 weeks gestation of pregnancy | CPT/HCPCS: 86403 ==

== ENCOUNTER 2025-02-16 14:34 | Outpatient (CLI) | payer BC, SELFPAY ==
--- NOTE | 2025-02-16 14:30 | US_ITS ---
PROCEDURE: US OB BIOPHYSICAL PROFILE CLINICAL INDICATION: Needs as soon as possible for SGA COMPARISON: US US OB <= 14 WEEKS FETUS from 07/27/2024 US US OB <= 14 WEEKS FETUS from 08/17/2024 US US OB <= 14 WEEKS FETUS from 08/30/2024 US US OB /MATERNAL DETAIL from 10/18/2024 US US OB FOLLOW UP from 11/08/2024 US US OB TRANSVAGINAL from 01/19/2025 US US OB BIOPHYSICAL PROFILE from 01/19/2025 FINDINGS: Transabdominal sonographic images of the uterus were obtained. From her established due date she is 38weeks 0 days. The following parameters are obtained: Viable Fetus in the cephalic presentation with an anterior placenta grade 2. There are multiple placental lakes. Average ultrasound age is 37weeks 1day Estimated weight 3,165g, 7 lb 0 oz The cervix measures 3.16 cm. Measurements: heart Rate = 125bpm BPD = 35weeks 5days, 14 percentile HC = 38weeks 1day, 33 percentile AC = 37weeks 6days, 61 percentile FL = 36weeks 5days, 19 percentile HC/AC is 0.99 FL/BPD is 0.81 FL/AC is 0.21 43 percentile Amniotic fluid index: 11.68cm, MVP 4.57 cm Qualitative AFV:2 Breathing movements: 2 Gross Body Movements: 2 Tone: 2 Biophysical profile score: 8 Doppler evaluation of the umbilical artery: SD ratio: 2.60-2.91 2.60-2.91. Look Resistive index: 0.62 No obvious anomalies evident.Kidneys, bladder, stomach, four-chamber heart, three-vessel cord appear normal. IMPRESSION: 1. Viable fetus in the cephalic presentation with anterior placenta grade 2. There are multiple placental lakes seen. 2. The fluid is within normal limits with an amniotic fluid index 11.68 cm, MVP 4.57 cm. 3. There has been good interval growth with the fetus currently 43rd percentile. 4. Biophysical profile 05/26 with good breathing movement and movement seen. 5. SD ratio is normal 2.60-2.91. 6. Limited anatomical scan appears normal. Dictated by: Khalif Lacy MD 02/16/2025 15:58 Khalif Lacy MD in [place] 02/16/2025 15:58
== END 2025-02-16 23:59 | disposition home or self-care (01) ==
LOC: RAD 14:35
PROVIDERS: PCP Nurse Practitioner Obstetrics & Gynecology; Visit Provider Nurse Practitioner Obstetrics & Gynecology
DX: O36.5990 Maternal care for other known or suspected poor fetal growth, unspecified trimester, not applicable or unspecified (principal)
CPT/HCPCS: 76816; 76819; 76820

== ENCOUNTER 2025-02-20 13:03 | Inpatient (IN) | payer BC, SELFPAY ==
[2025-02-20 11:07] VITALS: BMI 34.8
[2025-02-20 11:16] LABS: Microscopic, Urine URINE MICROSCOPIC (MICROSCOPIC)
[2025-02-20 11:18] LABS: Appearance,Urine CLEAR (Clear); Bilirubin,Urine Negative (Negative); Blood, Urine Negative (Negative); Color,Urine YELLOW (Yellow); Glucose,Urine (UA) Negative (Negative); Ketones,Urine Negative (Negative); Leukocyte Esterase,Urine Negative (Negative); Nitrate,Urine Negative (Negative); PH,Urine 6.5 (5.0-8.5); Protein,Urine Negative (Negative); Specific Gravity, Urine 1.015 (1.005-1.030); Urobilinogen,Urine 0.2 EU/dl (0.2)
[2025-02-20 11:24] VITALS: BP 144/86; PULSE 77; RESP 20; TEMP 36.5; O2SAT 98; BMI 34.8
[2025-02-20 11:30] LABS: Bacteria,Urine Trace /lpf; WBC,Urine Occasional #/hpf (0-3)
[2025-02-20 14:43] LABS: Chloride 108 mmol/L (98-107)
--- NOTE | 2025-02-20 14:43 | EXP.LABOR.NO ---
Labor Note Subjective: Date: 02/20/25 Time: 14:43 irregular contractions Objective: NST:: Reactive Contractions:: every 4-5 minutes Cervical Dilation:: 4 Effacement:: 50% Station: -2 Membranes: artificially ruptured Fetus: Monitoring?: Yes monitoring type:: Internal and External Assessment: Labor progressing?: Yes Cephalopelvic disproportion?: No Plan: Anesthesia for epidural?: Yes Continue to labor down?: Yes Plan for ?: No Continue to monitor?: Yes Start pushing?: No Comment:: I ruptured her membranes and there was clear fluid. I inserted an IUPC. Nonstress test is reactive and she we will start with oxytocin.
[2025-02-20 14:44] LABS: Albumin Level 3.8 g/dl (3.5-5.0); Potassium 3.8 mmoL/L (3.5-5.1); Sodium 134 mmol/L (136-145)
--- NOTE | 2025-02-20 14:45 | EXP.HP ---
History of Present Illness *Admission Date: 02/20/25 *Reason for visit:: Active labor. She is having regular contractions. Cervical changes. *History of present illness: She is a 24-year-old 3 para 2 at 38 and 4 weeks gestational age. She is having regular contractions and was observed in triage. She progressed from 3 to 4 cm and as result of that she is admitted for active labor. O Rh+ blood, Rubella immune GBS negative PFSH [facility] Disclaimer: The information contained in this section may have been updated after the patient was seen, as this information can be updated by other users. Medical History Vaginal bleeding affecting early Depression Anxiety Surgical History History of tonsillectomy History of cholecystectomy Social History Smoking Status: Never smoker second hand exposure: No alcohol intake: never substance use type: denies use current occupational status: employed Travel in the last 8 weeks?: None household members: significant other and family housing: house current occupation: [employer] current occupational exposures/hazards: No caffeine: Yes Have you lived/traveled outside [place] in past 30 days?: No Contact w/someone who lives/traveled outside US past 30 days?: No Exposure to someone with infectious disease in past 14 days?: No Do you have a fever (greater than 100.4 F or 38 C)?: No Have you tested positive for COVID-19?: No Exposed to someone with COVID-19 in past 14 days?: No Do you have a sore throat?: No Do you have a cough?: No Do you have any weakness?: No Do you have any diarrhea?: No Are you experiencing any unusual bleeding?: No Do you have any muscle aches/pain?: No Do you have any abdominal pain?: Yes Are you experiencing loss of taste or smell?: No Other Medical History Have you received the Flu Vaccine for this season: No Have you received the Pneumonia Vaccine: No Review of Systems Review of Systems Review of systems:: pertinent systems reviewed and negative unless documented below Meds Home Medications and Allergies Home Medications ?Medication ?Instructions ?Recorded ?Confirmed ?Type vits no.126-ferrous fum tab PO 08/22/24 02/16/25 History 28 mg iron-folic acid 800 mcg tablet (Classic ) ferrous sulfate 325 mg (65 mg 325 mg PO DAILY #30 tabs 11/08/24 02/16/25 Rx iron) tablet New Prescriptions to Start Prescriptions: Allergies Allergy/AdvReac Type Severity Reaction Status Date / Time No Known Allergies Allergy Verified 02/16/25 08:35 Exam Data for Last 24 hours Vital signs and Labs for Last 24 Hours: Temp Pulse Resp BP Pulse Ox O2 Del Method 97.7 F 77 20 144/86 H 98 Room Air 02/20/25 11:24 02/20/25 11:24 02/20/25 11:24 02/20/25 11:24 02/20/25 11:24 02/20/25 11:24 Laboratory Results - last 24 hr 02/20/25 11:05: Urine Color Yellow, Urine Appearance Clear, Urine pH 6.5, Ur Specific [place] 1.015, Urine Protein Negative, Urine Glucose (UA) Negative, Urine Ketones Negative, Urine Blood Negative, Urine Nitrate Negative, Urine Bilirubin Negative, Urine Urobilinogen 0.2, Ur Leukocyte Esterase Negative, Urine RBC None, Urine WBC Occasional, Ur Squamous Epith Cells 3-5, Urine Bacteria Trace I & O for Last 24 hours: Intake & Output 02/18/25 02/19/25 02/20/25 02/21/25 11:59 11:59 11:59 11:59 Weight 236 lb Constitutional Constitutional: no acute distress *Routine HEENT Exam Head: Present normocephalic Eye: Present EOMI and PERRL ENT: Present mucous membranes moist *Routine Neck Exam Neck: Present supple; Absent lymphadenopathy *Routine Respiratory Exam Respiratory: Present CTA bilaterally *Routine Cardiovascular Exam Cardiovascular: Present RRR *Routine Abdominal Exam Abdominal: Present soft and normoactive bowel sounds; Absent tenderness *Routine Rectal Exam Rectal:: deferred *Routine Genitalia Exam Genitalia:: deferred *Routine Extremities Exam Extremities: Absent cyanosis, clubbing or edema *Routine Skin Exam Skin: Present warm; Absent rash *Routine Neurological Exam Neurological: Present alert and oriented X3 Assessment and Plan *Assessment and plan (1) Normal delivery at term: Status: Acute Category: Medical Code(s): O80 - Encounter for full-term uncomplicated delivery Plan She is an active labor at term. We will plan a vaginal delivery.
[2025-02-20 14:46] LABS: Blood Urea Nitrogen 8 mg/dl (7-17); Creatinine Clearance Estimated 242 mL/min (50-200); Estimated Glomerular Filt Rate 122 ml/min (>60); GFR (African American) 147 ML/MIN (>60)
[2025-02-20 14:47] LABS: Alanine Aminotransferase 22 U/L (12-78); Albumin/Globulin Ratio 1.1 (1.1-1.8); Alkaline Phosphatase 270 U/L (38-126); Anion Gap 7.8 mEq/L (5-15); Aspartate Amino Transferase 28 U/L (14-36); Bilirubin,Total 0.3 mg/dl (0.2-1.3); Calcium 9.6 mg/dl (8.4-10.2); Carbon Dioxide 22 mmol/L (22.0-30.0); Globulin 3.4 g/dL (1.3-3.2); Glucose 74 mg/dl (74-100); Total Protein,Serum 7.2 g/dl (6.3-8.2)
[2025-02-20 14:48] LABS: Basophils # 0.1 K/mm3 (0-0.2); Basophils % 0.4 % (0.1-2.0); Eosinophils # 0.1 Kmm3 (0.0-0.4); Eosinophils % 0.7 % (0.1-12.0); Hematocrit 38.4 % (37.0-47.0); Hemoglobin 12.8 g/dL (12.2-16.2); Lymphocytes # 2.8 K/mm3 (0.7-4.5); Lymphocytes % 20.1 % (10-50); Mean Corpuscular HGB Conc 33.3 g/dL (31.8-35.4); Mean Corpuscular Hemoglobin 26.3 pg (27.0-31.2); Mean Platelet Volume 10.4 fl (7.4-10.4); Monocytes # 0.7 K/mm3 (0.1-1.0); Monocytes % 5.1 % (1.7-9.3); Neutrophils # 10.3 K/mm3 (1.8-7.8); Neutrophils % 73.2 % (37.0-80.0); Nucleated Red Blood Cells # 0 10^3/uL; Nucleated Red Blood Cells % 0 %; Platelet Count 302 K/mm3 (142-424); Red Blood Count 4.86 M/mm3 (4.20-5.40); Red Cell Distribution Width 12.4 % (11.5-17.5); White Blood Count 14.1 K/mm3 (4.8-10.8)
[2025-02-20] MEDS: LACTATED RINGERS 1000ML 1,000 ML 500 ML IV (14:58)
[2025-02-20] MEDS: OXYTOCIN/RINGERS LACTATE 30 UNITS/500 ML BAG IV (14:58)
[2025-02-20] MEDS: DEXTROSE 5%-LACTATED RINGERS 1,000 ML 125 ML IV (14:59)
--- NOTE | 2025-02-20 18:18 | EXP.ANES.CKL ---
[facility] Disclaimer: The information contained in this section may have been updated after the patient was seen, as this information can be updated by other users. Medical History Vaginal bleeding affecting early Depression Anxiety Surgical History History of tonsillectomy History of cholecystectomy Social History Smoking Status: Never smoker second hand exposure: No alcohol intake: never substance use type: denies use current occupational status: employed Travel in the last 8 weeks?: None household members: significant other and family housing: house current occupation: [employer] current occupational exposures/hazards: No caffeine: Yes Have you lived/traveled outside US in past 30 days?: No Contact w/someone who lives/traveled outside US past 30 days?: No Exposure to someone with infectious disease in past 14 days?: No Do you have a fever (greater than 100.4 F or 38 C)?: No Have you tested positive for COVID-19?: No Exposed to someone with COVID-19 in past 14 days?: No Do you have a sore throat?: No Do you have a cough?: No Do you have any weakness?: No Do you have any diarrhea?: No Are you experiencing any unusual bleeding?: No Do you have any muscle aches/pain?: No Do you have any abdominal pain?: Yes Are you experiencing loss of taste or smell?: No [facility] Anesthesia Checklist Patient Identification Patient Identification: Arm Band and Verbal (Name & ) Structural Data Admitted From: Home Planned Operative Procedure/s: labor epidural Consent for Planned Operative Procedure(s) Verified: Yes Verified Documents: Surgical Consent NPO Status Verified Time NPO: 00:00 Chart Verification Results Verified: CBC and BMP Additional verifications Patient : Yes Anesthesia Reactions: No Hx Blood Transfusions: No Blood Transfusion Reaction: No Airway Assessment Mallampati Score:: Class I Dentition: Good Dentition Neurological Assessment Level of Consciousness: Awake, Alert and Appropriate Hx Seizures: No Numbness or tingling in extremities: No Anesthesia Plan Anesthesia Risk discussed: Yes Anesthesia Plan: Verified ASA Class: II Anesthesia Type: Epidural
--- NOTE | 2025-02-20 18:19 | P.PNANES_ITS ---
[facility] Anesthesia Record Part I Anesthesia Record I Intake, IV Amount: 0 Hydration: Adequate Estimated blood loss (mL): 0 Urine output (mL): 0 Blood Products used (#): none Blood Pressure: 144/66 SaO2: 98 Pulse Rate: 76 Airway Patency: Patent Respiratory Rate: 16 Temperature: 97.0 F Patient is:: Awake and Stable Stable to PACU at:: 18:10
[2025-02-20 18:20] VITALS: BP 144/66; PULSE 76; RESP 16; TEMP 36.1; O2SAT 98
--- NOTE | 2025-02-20 18:22 | EXP.LABOR.NO ---
Labor Note Subjective: Date: 02/20/25 Time: 18:22 regular contraction Objective: NST:: Reactive Contractions:: every 2-3 minutes Cervical Dilation:: 8 Effacement:: 100% Station: 0 Membranes: artificially ruptured Fetus: Monitoring?: Yes monitoring type:: Internal and External Assessment: Labor progressing?: Yes Cephalopelvic disproportion?: No Plan: Anesthesia for epidural?: Yes Continue to labor down?: Yes Plan for ?: No Continue to monitor?: Yes Start pushing?: No Comment:: She is currently 8 cm dilated. She is feeling pressure. She has an epidural. Nonstress test is reactive. She was 5 cm at 4:30 PM. We expect a vaginal delivery
--- NOTE | 2025-02-20 18:52 | EXP.DN ---
Delivery Note Delivery Date:: 02/20/25 Delivery Time:: 18:42 Anesthesia Type: Epidural Was labor medically induced?: No Induction method: none Gestational age (weeks): 38 Infant delivered prior to 39 weeks?: Yes Justification for early elective delivery:: Active Labor Gender: Female at 1 minute: 8 at 5 minutes: 9 Delivery Procedure:: She is a 24-year-old 3 para 2 who was 38+ weeks gestational age. She arrived in active labor. She subsequently had her membranes ruptured and under labor epidural progressed to full dilation. She delivered spontaneously a liveborn female child at 6:42 PM in the evening of February 20, 2025. On deliver the head the anterior shoulder then easily delivered followed by the rest the infant's body atraumatically. The oropharynx and nasopharynx were bulb suctioned. We allowed the cord to continue to pulsate for approximately 1 minute and then it was doubly clamped and cut. The was then placed on the mother's abdomen for further care. The nurse assigned Apgars of 8 at 1 minute and 9 at 5 minutes. We then obtained cord blood. She received IV oxytocin and using gentle traction the cord and countertraction on the fundus I was able to easily deliver the placenta intact 5 minutes after delivery. It had a normal three-vessel cord. There were no perineal or vaginal lacerations. She has O+ blood, she is rubella immune and was group B streptococcus negative. Her children's court magistrate is Dr. Guidry. Estimated blood loss was approximately 100 cc. Placental Delivery Description: Spontaneous
[2025-02-20] MEDS: OXYTOCIN/RINGERS LACTATE 30 UNITS/500 ML BAG 40 UNITS IV (19:00)
[2025-02-20] MEDS: ACETAMINOPHEN 500MG TAB 1000 MG PO (20:30)
[2025-02-20 21:00] VITALS: BP 135/68; PULSE 48; RESP 18; TEMP 36.7
[2025-02-21] MEDS: ACETAMINOPHEN 500MG TAB 1000 MG PO ×3 (04:37→17:26)
[2025-02-21 04:39] VITALS: BP 133/63; PULSE 58; RESP 18; TEMP 36.8; O2SAT 97
[2025-02-21 06:09] LABS: Hematocrit 34.1 % (37.0-47.0)
[2025-02-21 06:22] LABS: Hemoglobin 11.5 g/dL (12.2-16.2)
[2025-02-21 06:58] LABS: RPR W/RFX Titers Nonreactive (Nonreactive)
[2025-02-21 08:29] VITALS: BP 134/79; PULSE 50; RESP 16; TEMP 36.6; O2SAT 99
--- NOTE | 2025-02-21 09:41 | EXP.ACUTE.PN ---
Subjective *Date: 02/21/25 *Time: 09:41 Interval history: She is 1 day post from a vaginal delivery. She is breast-feeding. Her lochia is normal. She denies any pain. She does complain of a mild headache but her blood pressure is normal. Medical Exam Vital signs and Labs for Last 24 Hours: Vital Signs Temp Pulse Pulse Resp BP BP Pulse Ox 02/21/25 08:29 97.9 F 50 L 16 134/79 99 02/21/25 04:39 98.3 F 58 L 18 133/63 97 02/20/25 21:00 98.0 F 48 L 18 135/68 02/20/25 18:20 97.0 F L 76 16 144/66 H 02/20/25 11:24 97.7 F 77 20 144/86 H 98 O2 Del Method 02/21/25 08:29 Room Air 02/21/25 04:39 Room Air 02/20/25 21:00 02/20/25 18:20 02/20/25 11:24 Room Air Intake and Output 02/20/25 02/21/25 02/21/25 19:59 03:59 11:59 Intake Total 0 / 0 Balance 0 / 0 Intake: Intake, Total IV Amount 0 / 0 Laboratory Results - last 24 hr 02/20/25 11:05: Urine Color Yellow, Urine Appearance Clear, Urine pH 6.5, Ur Specific [place] 1.015, Urine Protein Negative, Urine Glucose (UA) Negative, Urine Ketones Negative, Urine Blood Negative, Urine Nitrate Negative, Urine Bilirubin Negative, Urine Urobilinogen 0.2, Ur Leukocyte Esterase Negative, Urine RBC None, Urine WBC Occasional, Ur Squamous Epith Cells 3-5, Urine Bacteria Trace 02/20/25 14:02: WBC 14.1 H, RBC 4.86, Hgb 12.8, Hct 38.4, MCV 79.0 L, MCH 26.3 L, MCHC 33.3, RDW 12.4, Plt Count 302, MPV 10.4, Neut % (Auto) 73.2, Lymph % (Auto) 20.1, [place] % (Auto) 5.1, Eos % (Auto) 0.7, Baso % (Auto) 0.4, Neut # (Auto) 10.3 H, Lymph # (Auto) 2.8, [place] # (Auto) 0.7, Eos # (Auto) 0.1, Baso # (Auto) 0.1, Sodium 134 L, Potassium 3.8, Chloride 108 H, Carbon Dioxide 22, Anion Gap 7.8, BUN 8, Creatinine 0.60, Estimated Creat Clear 242, Estimated GFR 122, Est GFR ( Amer) 147, Glucose 74, Calcium 9.6, Total Bilirubin 0.3, AST 28, ALT 22, Alkaline Phosphatase 270 H, Total Protein 7.2, Albumin 3.8, Globulin 3.4 H, Albumin/Globulin Ratio 1.1, RPR w/Rflx to Titer Nonreactive, Blood Type O Positive, Antibody Screen Negative 02/21/25 05:44: Hgb 11.5 L D, Hct 34.1 L I & O for Labs for Last 24 Hours: Intake & Output 02/18/25 02/19/25 02/20/25 02/21/25 11:59 11:59 11:59 11:59 Intake Total 0 / 0 Balance 0 / 0 Weight 236 lb Head: Present normocephalic ENT: Present normal exam Neck: Present normal inspection Respiratory: Present normal respiratory effort; Absent accessory muscle use Assessment and Plan *Assessment and plan (1) Normal delivery at term: Status: Acute Category: Medical Code(s): O80 - Encounter for full-term uncomplicated delivery Plan She is very well this morning. She is breast-feeding. We will plan to discharge her home tomorrow.
[2025-02-21] MEDS: IBUPROFEN 400 MG TABLET 800 MG PO (21:46)
[2025-02-21 22:32] VITALS: BP 134/69; PULSE 63; RESP 17; TEMP 36.8; O2SAT 98
[2025-02-22] MEDS: ACETAMINOPHEN 500MG TAB 1000 MG PO ×2 (03:00→11:43)
[2025-02-22 05:35] VITALS: BP 147/76; PULSE 66; RESP 16; TEMP 37; O2SAT 98
[2025-02-22 06:41] VITALS: BP 132/84
[2025-02-22 08:54] VITALS: BP 133/76; PULSE 74; RESP 18; TEMP 36.7; O2SAT 98
--- NOTE | 2025-02-22 10:26 | P.DS_ITS ---
General Admission date:: 02/20/25 Discharge date: 02/22/25 HPI HPI HPI: She is a 24-year-old 3 para 2 at 38 and 4 weeks gestational age. She is having regular contractions and was observed in triage. She progressed from 3 to 4 cm and as result of that she is admitted for active labor. O Rh+ blood, Rubella immune GBS negative Hospital Course Hospital Course Hospital Course: She arrived in early labor and subsequently had her membranes ruptured. Under labor epidural she progressed to full dilation and delivered spontaneously a liveborn female child on the evening of February 20, 2025. The baby had Apgars of 8 at 1 minute and 9 at 5 minutes. She has done well and has remained afebrile throughout hospitalization. She is eating and drinking and ambulating. She is breast- feeding. Her lochia is normal. She will be discharged home today to follow-up with me in approximately 2 weeks time. She will continue with her vitamins and iron. She was given the usual instructions with respect to limiting her activity, driving and sexual activity. Her condition on discharge is stable and improved Exam Data for Last 24 hours Vital signs and Labs for Last 24 Hours: Temp Pulse Resp BP Pulse Ox O2 Del Method 98.1 F 74 18 133/76 98 Room Air 02/22/25 08:54 02/22/25 08:54 02/22/25 08:54 02/22/25 08:54 02/22/25 08:54 02/22/25 08:54 I & O for Last 24 hours: Intake & Output 02/19/25 02/20/25 02/21/25 02/22/25 11:59 11:59 11:59 11:59 Intake Total 0 / 0 Balance 0 / 0 Weight 236 lb Constitutional Constitutional: no acute distress *Routine HEENT Exam Head: Present normocephalic *Routine Neck Exam Neck: Present full ROM *Routine Respiratory Exam Respiratory: Present normal respiratory effort; Absent accessory muscle use DS: Diagnosis Discharge Diagnosis (1) Normal delivery at term: Status: Acute Code(s): O80 - Encounter for full-term uncomplicated delivery Meds Home Medications and Allergies Home Medications ?Medication ?Instructions ?Recorded ?Confirmed ?Type vits no.126-ferrous fum 1 tab PO DAILY 08/22/24 02/21/25 History 28 mg iron-folic acid 800 mcg tablet (Classic ) ferrous sulfate 325 mg (65 mg 325 mg PO DAILY #30 tabs 11/08/24 02/21/25 Rx iron) tablet New Prescriptions to Start Prescriptions: Allergies Allergy/AdvReac Type Severity Reaction Status Date / Time No Known Allergies Allergy Verified 02/16/25 08:35 Discharge Plan Disposition Patient Disposition: Home, Self-Care Discharge Order Discharge Orders: Discharge Order (Routine); Ordered 02/22/25 Ordered By: Khalif Lacy Follow up Plan Follow up with: Khalif Lacy MD [Staff Physician] - 03/06/25 2:00 pm Prescriptions/Medication Reconciliation: Continued Classic 28 mg iron- 800 mcg tablet 1 tab PO DAILY ferrous sulfate 325 mg (65 mg iron) tablet 325 mg PO DAILY Qty: 30 6RF Problem Reconciliation Problems Reviewed?: Yes Patient Discharge Instructions ACTIVITY: No heavy lifting DIET: continue same diet Additional Instructions: Nothing in the vagina for 6 weeks. No heavy lifting Drink plenty of water Patient Instructions: Depression, Hemorrhage, DI for Labor and Delivery, Vaginal , DI for Pre-eclampsia, [facility] Post Discharge Instructions Print Language: South Korean Providers Primary Care Provider: Provider,Referral Admit Provider: Khalif Lacy Attending Provider: Khalif Lacy
[2025-02-22] MEDS: IBUPROFEN 400 MG TABLET 800 MG PO (11:44)
--- NOTE | 2025-02-22 13:36 | P.PNANES_ITS ---
[facility] Disclaimer: The information contained in this section may have been updated after the patient was seen, as this information can be updated by other users. Medical History Vaginal bleeding affecting early Depression Anxiety Surgical History History of tonsillectomy History of cholecystectomy Social History Smoking Status: Never smoker second hand exposure: No alcohol intake: never substance use type: denies use current occupational status: employed Travel in the last 8 weeks?: None household members: significant other and family housing: house current occupation: [employer] current occupational exposures/hazards: No caffeine: Yes [facility] Anesthesia Checklist Patient Identification Patient Identification: Arm Band Structural Data Admitted From: Inpatient Planned Operative Procedure/s: Epidural Blood Patch Consent for Planned Operative Procedure(s) Verified: Yes Verified Documents: Surgical Consent and History and Physical Additional verifications Anesthesia Reactions: No Hx Blood Transfusions: No Blood Transfusion Reaction: No Neurological Assessment Level of Consciousness: Awake, Alert and Appropriate Anesthesia Plan Anesthesia Risk discussed: Yes Anesthesia Plan: Verified ASA Class: II Anesthesia Type: Epidural (blood patch) Preoperative Comments Pre-Operative Comments: Pt is ~44 hours post epidural placement. She complains of severe headache that is mostly relieved when lying flat. Pt also complains of photophobia and neck pain/pressure. Conservative measures taken with no reli ef. I discussed options with her and ultimately it was decided to attempt Epidural Blood Patch. Risks/benefits and education explained to the pt. Pt verbalized understanding.
--- NOTE | 2025-02-22 14:01 | P.PCN_ITS ---
[facility] Procedure Note Date: 02/22/25 Time: 13:45 Procedure Note:: Pt complains of symptoms consistent with post dural puncture headache. Risks/benefits of epidural blood patch explained. Pt verbalized understanding. Consent obtained. Sterile prep/drape with betadine. #20 G IV started in sterile fashion by RN. 1% Lidocaine skin wheal at L3-4. Loss of resistance with saline at 6-7 cm. Attempt x 2. 20 cc of autologous blood drawn from IV in sterile fashion by RN and then handed to me. 18 cc of blood injected into epidural space when pt c/o mild pressure in back. Needle then withdrawn and bandaid applied. Pt describes some relief in headache/pressure but does report some back/hip pressure. Education provided to the pt who verbalized understanding. Please see nursing charting for vital signs assessment.
== END 2025-02-22 16:28 | disposition home or self-care (01) | DRG 807 ==
LOC: OBOUT 13:04 → OB 13:04
PROVIDERS: Admitting Provider Nurse Practitioner Obstetrics & Gynecology; Visit Provider Nurse Practitioner Obstetrics & Gynecology
DX: O89.4 Spinal and epidural anesthesia-induced headache during the puerperium (principal); Z37.0 Single live birth; G97.1 Other reaction to spinal and lumbar puncture; Z3A.38 38 weeks gestation of pregnancy; Z79.899 Other long term (current) drug therapy; Z23 Encounter for immunization
CPT/HCPCS: 59025; 80053; 81001; 85014; 85018; 85025; 86592; 86850; 94761; C1758; J2003; J2795; J3010; J7120; J7121

== ENCOUNTER 2025-05-02 11:55 | Outpatient (CLI) | payer BC, SELFPAY ==
--- OUTSIDE RECORDS SUMMARY | 2025-05-02 11:59 | XMS_ITS | Clinical Summary ---
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 Role Phone Unavailable Primary Care Provider Unavailabl e Social History Tobacco Use Types Packs/Day Years Used Date Smoking Tobacco: Never Assessed Intimate Partner Violence Answer Date R ecorded Insults You Not on file 02/02/2021 Threatens You Not on file 02/02/2021 Screams at You Not on file 02/02/2021 Physically Hurt Not on file 02/02/2021 Intimate Partner Violence Score Not on file 02/02/2021 Stress Answer Date Recorded Stress in your Life Not on file 08/24/2024 Dealing with Stress 3 08/24/2024 Comments Unknown Sex and Gender Information Value Date Recorded Sex Assigned at Not on file Legal Sex Female 8:26 AM [employer] 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[employer] Gender Identity Not on file Sexual Orientation Not on file Plan of Treatment Health Maintenance Due Date Last Done Comments Dental Cleaning/Exam 1999 HIV Screening 1999 Hepatitis C Screening 1999 HPV Immunization (1 - 3-dose series) 2014 Cervical Cancer Screening 2015 Annual Preventive Exam 2017 Hep B Infection Screening - Triple Screen 2017 Hepatitis B Immunization (1 of 3 - 19+ 3-dose series) 2018 Tetanus Diphtheria and Pertu ssis Immunization (1 - Tdap) 2018 Covid-19 Immunization (1 - 2 season) 2024 Influenza Immunization (#1) 2025 HIB Immunization Aged Out No longer e ligible based on patient's age to complete this topic Hepatitis A Immunization Aged Out No longer eligible based on patient's age to complete this topic Men B Immunization Aged Out No longer eligible based on patient's age to complete this topic Meningococcal Immunization Aged Out N o longer eligible based on patient's age to complete this topic Pneumococcal: Ped (0 to 5 Yr s) and At-Risk Member (6 to 64 Yrs) Aged Out No longer e ligible based on patient's age to complete this topic Polio Immunization Aged Out No longer eligible based on patient's age to complete this topic Varicella Immunization Aged Out No lo nger eligible based on patient's age to complete this topic
[2025-05-02 12:25] LABS: Hematocrit 40.8 % (37.0-47.0); Hemoglobin 13.0 g/dL (12.2-16.2); Immature Granulocytes % 0.5 %; Mean Corpuscular HGB Conc 31.9 g/dL (31.8-35.4); Mean Corpuscular Hemoglobin 25.5 pg (27.0-31.2); Mean Corpuscular Volume 80.0 fl (81-99); Nucleated Red Blood Cells % 0 %; Platelet Count 320 K/mm3 (142-424); Red Blood Count 5.10 M/mm3 (4.20-5.40); Red Cell Distribution Width-SD 37.4 fL; White Blood Count 10.8 K/mm3 (4.8-10.8)
[2025-05-02 13:05] LABS: Anion Gap 16.4 mEq/L (5-15); Blood Urea Nitrogen 9 mg/dl (7-17); Calcium 10.0 mg/dl (8.4-10.2); Carbon Dioxide 27 mmol/L (22.0-30.0); Chloride 101 mmol/L (98-107); Creatinine,Serum 0.60 mg/dl (0.52-1.04); Estimated Glomerular Filt Rate 122 ml/min (>60); GFR (African American) 147 ML/MIN (>60); Glucose 93 mg/dl (74-100); Potassium 4.4 mmoL/L (3.5-5.1); Sodium 140 mmol/L (136-145)
[2025-05-02 13:19] LABS: HCG Qualitative, Serum Negative (Negative)
== END 2025-05-02 23:59 | disposition home or self-care (01) ==
LOC: PREOP 11:56
PROVIDERS: Visit Provider Nurse Practitioner Obstetrics & Gynecology
DX: Z01.812 Encounter for preprocedural laboratory examination (principal)
CPT/HCPCS: 80048; 84703; 85025

== ENCOUNTER 2025-05-08 06:12 | Day surgery (SDC) | payer BC, SELFPAY ==
[2025-05-02 14:01] VITALS: BMI 31.3
[2025-05-08] VITALS (12 sets, daily range): BP systolic 122–154; BP diastolic 59–90; PULSE 52–90; RESP 14–18; TEMP 36.1–38; O2SAT 94–98
[2025-05-08] MEDS: LACTATED RINGERS 1000ML 1,000 ML 25 ML IV (06:37)
--- NOTE | 2025-05-08 06:55 | EXP.ANES.CKL ---
[facility] Disclaimer: The information contained in this section may have been updated after the patient was seen, as this information can be updated by other users. Medical History Small for gestational age fetus affecting management of mother Vaginal bleeding affecting early Depression Anxiety Surgical History History of tonsillectomy History of cholecystectomy Family History Mother Family history of diabetes mellitus type II Social History Smoking Status: Never smoker second hand exposure: No alcohol intake: never substance use type: denies use current occupational status: employed Travel in the last 8 weeks?: None household members: significant other and family housing: house current occupation: [employer] current occupational exposures/hazards: No caffeine: Yes Have you lived/traveled outside US in past 30 days?: No Contact w/someone who lives/traveled outside US past 30 days?: No Exposure to someone with infectious disease in past 14 days?: No Do you have a fever (greater than 100.4 F or 38 C)?: No Have you tested positive for COVID-19?: No Exposed to someone with COVID-19 in past 14 days?: No Do you have a sore throat?: No Do you have a cough?: No Do you have any weakness?: No Do you have any diarrhea?: No Are you experiencing any unusual bleeding?: No Do you have any muscle aches/pain?: No Do you have any abdominal pain?: No Are you experiencing loss of taste or smell?: No [facility] Anesthesia Checklist Patient Identification Patient Identification: Arm Band Structural Data Admitted From: Home Planned Operative Procedure/s: Laparoscopic Bilateral Salpingectomy Consent for Planned Operative Procedure(s) Verified: Yes Verified Documents: Surgical Consent and History and Physical NPO Status Verified Time NPO: 00:00 Additional verifications Anesthesia Reactions: No Hx Blood Transfusions: No Blood Transfusion Reaction: No Airway Assessment Mallampati Score:: Class II C-Spine Mobility Assessed: Yes TMJ Mobility Assessed: Yes Dentition: Good Dentition Neurological Assessment Level of Consciousness: Awake, Alert and Appropriate Anesthesia Plan Anesthesia Risk discussed: Yes Anesthesia Plan: Verified ASA Class: I Anesthesia Type: General
--- NOTE | 2025-05-08 08:26 | P.PNANES_ITS ---
[facility] Anesthesia Record Part I Anesthesia Record I Intake, IV Amount: 500 Hydration: Adequate Estimated blood loss (mL): 25 Urine output (mL): 0 Blood Products used (#): none Blood Pressure: 154/90 SaO2: 97 Pulse Rate: 90 Airway Patency: Patent Respiratory Rate: 14 Temperature: 97.0 F Patient is:: Stable and Somnolent Stable to PACU at:: 08:24
--- NOTE | 2025-05-08 08:29 | EXP.OP.NOTE ---
Date of procedure: 05/08/25 Pre-op Diagnosis:: Desire for sterilization Post-op Diagnosis:: Desire for sterilization Procedure performed:: Bilateral salpingectomy Surgeon:: Khalif Lacy MD Quality Cloth Tester(s):: None CUT OUT MARKER:: Brent Lopez Anesthesia: GETA Estimated blood loss (mL): 25 Clinical Note:: She is a 24-year-old lady who expressed desire for sterilization. The risks and benefits as well as the irreversibility of bilateral salpingectomy discussed with patient prior to surgery. Operative findings:: She had a normal-appearing pelvis. The ovaries appeared normal. The tubes were followed to their fimbriated end. 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 The upper abdomen was seen and appeared normal. The rest the pelvis appeared normal. There is no evidence of endometriosis. Operative note:: She was taken to the operating room where general anesthesia was found be adequate. She was prepped and draped in normal sterile fashion in the semilithotomy position. A weighted speculum was placed in the vagina and the anterior lip of the cervix was grasped with a tenaculum. I then inserted a Fabiola uterine manipulator into the cervical os. The balloon was then insufflated. I changed gloves and injected 10 cc of 0.5% ropivacaine around her umbilicus and made a small incision within the umbilicus. I inserted a Veress needle into the abdominal cavity. The peritoneal cavity was then insufflated with carbon dioxide gas to a pressure of 20 mmHg. I then inserted a 5 millimeter trocar under direct vision. I injected through and through the pubic hairline, made a small incision here and inserted an 8 mm trocar under direct vision. I identified the inferior epigastric artery on the left side, went lateral to these and injected through and through. I then placed a 5 mm trocar here under direct vision. The pelvis and upper abdomen were then inspected and the findings were as previously dictated. I grasped the right tube at the cornua and using harmonic scalpel on coagulation mode I cut through the tube. I then grasped the distal tube and using harmonic scalpel cut along the mesosalpinx. The tube was removed through 8 mm trocar site. This was similarly performed on the patient's left side. I then injected 30 cc of 0.5% ropivacaine into the pelvis. After assuring hemostasis the gas was let out of the abdomen and hemostasis was once again assured. The abdomen was then reinsufflated. The secondary trochars were removed under direct vision. The gas was let out her abdomen. The primary trocar was then removed. The 8 mm trocar site was closed deeply with 2-0 Vicryl suture followed by subcuticular 4-0 Monocryl suture. The 5 mm trocar sites were closed with subcuticular 4-0 Monocryl. Sterile dressings were applied. The patient tolerated the procedure well and was taken to the recovery room in excellent condition. All sponge instrument and needle counts were correct. The estimated blood loss was less than 25 cc. Condition: stable Disposition: PACU Specimens:: Bilateral fallopian tubes Complications:: None
--- NOTE | 2025-05-08 12:02 | EXP.ANES.II ---
[facility] Anesthesia Record Part II Anesthesia Record Part II Discharge Time: 09:25 Destination: Surgical Day Care (OP Surgery) PACU nurse assessment reviewed?: Yes Patient Condition:: Good Anesthesia Complications:: None Swallowing reflex intact?: Yes Airway Patency: Patent Cyanosis?: No Blood Pressure: 131/71 SaO2: 97 Respiratory Rate: 16 Pulse Rate: 62 Temperature: 97.4 F Mental Status: Alert & Oriented Pain level:: 0 Nausea and/or vomitting:: None Intake, IV Amount: 0 Hydration: Adequate
== END 2025-05-08 09:57 | disposition home or self-care (01) ==
PROVIDERS: Visit Provider Nurse Practitioner Obstetrics & Gynecology
PROC: (CPT 58661; principal; 2025-05-08 07:30)
DX: Z30.2 Encounter for sterilization (principal); Z88.6 Allergy status to analgesic agent
CPT/HCPCS: 58700; 96374; J0690; J1100; J2003; J2250; J2405; J2704; J2795; J3010; J7120

== ENCOUNTER 2025-09-26 12:03 | Emergency (ER) | payer BC, SELFPAY ==
[2025-09-26] VITALS (9 sets, daily range): BP systolic 124–156; BP diastolic 75–109; PULSE 67–80; RESP 18–20; TEMP 36.6–36.9; O2SAT 96–99; BMI 31.3
[2025-09-26 12:14] LABS: Microscopic, Urine URINE MICROSCOPIC (MICROSCOPIC)
[2025-09-26 12:21] LABS: Bilirubin,Urine Negative (Negative); Color,Urine YELLOW (Yellow); Glucose,Urine (UA) Negative (Negative); Ketones,Urine Negative (Negative); Leukocyte Esterase,Urine Negative (Negative); PH,Urine 7.0 (5.0-8.5); Protein,Urine Negative (Negative); Specific Gravity, Urine 1.020 (1.005-1.030); Urobilinogen,Urine 1.0 EU/dl (0.2)
--- NOTE | 2025-09-26 12:21 | ED_ITS ---
Discharge Plan Disposition Patient Disposition: Home, Self-Care Condition: Good Prescriptions Prescriptions: New acetaminophen 500 mg capsule 1,000 mg PO Q6H PRN (Reason: pain) Qty: 30 0RF ibuprofen 800 mg tablet 800 mg PO Q8H PRN (Reason: pain) Qty: 30 0RF methocarbamol 750 mg tablet 750 mg PO TID Qty: 30 0RF lidocaine [Lidoderm] 5 % adhesive patch,medicated 1 patch topical DAILY Qty: 15 0RF Rx Instructions: leave on most painful area for up to 12 hrs Referrals Follow up/Referrals: Provider,Referral, MD [Primary Care Provider, Medical] - See instructions h [Other] - See instructions Manuel Mueller DO [Staff Physician, Orthopedics] - See instructions Activity Restrictions/Add. Instructions Additional Instructions/Restrictions: You should pump and dump if you are taking the muscle relaxer. Take off work for the next 2 days. When you return, you may return with restrictions: No bending twisting or lifting over 15 pounds until cleared by PCP or orthopedist. Return if you develop any numbness weakness tingling worsening pain despite medicines at home. Please follow up with your primary care provider in 2-3 days. Please return to ED if your symptoms worsen, change in location, change in severity, new symptoms develop or if you become concerned for your health. Clinical Impressions Clinical Impression: Acute lumbar myofascial strain Instructions Patient Instructions: DI for Low Back Pain Print Language Print Language: Wallisian Discharge ED Provider: Greg Lindsay Adult HPI General Chief complaint: Back Pain/Injury Stated complaint: Back pain no accident w/pressure Time Seen by Provider: 09/26/25 12:18 History of Present Illness HPI narrative: Patient is a 24-year-old female with no significant past medical history. She is currently breast-feeding. She presents today for low back pain. She reports that yesterday she was cleaning around the house and she has been picking up her 7-month-old toddler at home frequently. She reports that she woke up this morning with cramping low back pain. It is primarily in the middle and also radiating to the right. She denies any trauma or falls. She denies any fevers or numbness weakness tingling or infectious symptoms. She denies any dysuria or hematuria. Denies any history of back surgeries or IV drug use. Denies any saddle anesthesia or urinary continence. Related Data Previous Rx's ?Medication ?Instructions ?Recorded acetaminophen 500 mg capsule 1,000 mg (2 x 500 mg) PO Q6H PRN 09/26/25 pain #30 caps ibuprofen 800 mg tablet 800 mg PO Q8H PRN pain #30 t abs 09/26/25 lidocaine 5 % topical patch 1 patch topical DAILY #15 ea 09/26/25 (Lidoderm) methocarbamol 750 mg tablet 750 mg PO TID #30 tabs 07/13 Allergies Allergy/AdvReac Type Severity Reaction Status Date / Time No Known Allergies Allergy Verified 05/24/25 13:55 [facility] Disclaimer: The information contained in this section may have been updated after the patient was seen, as this information can be updated by other users. Medical History Small for gestational age fetus affecting management of mother Vaginal bleeding affecting early Depression Anxiety Surgical History History of tonsillectomy History of cholecystectomy Family History Mother Family history of diabetes mellitus type II Social History Smoking Status: Never smoker second hand exposure: No alcohol intake: never substance use type: denies use current occupational status: employed Travel in the last 8 weeks?: None household members: significant other and family housing: house current occupation: [employer] current occupational exposures/hazards: No caffeine: Yes Have you lived/traveled outside US in past 30 days?: No Contact w/someone who lives/traveled outside US past 30 days?: No Exposure to someone with infectious disease in past 14 days?: No Do you have a fever (greater than 100.4 F or 38 C)?: No Have you tested positive for COVID-19?: No Exposed to someone with COVID-19 in past 14 days?: No Do you have a sore throat?: No Do you have a cough?: No Do you have any weakness?: No Do you have any diarrhea?: No Are you experiencing any unusual bleeding?: No Do you have any muscle aches/pain?: No Do you have any abdominal pain?: No Are you experiencing loss of taste or smell?: No Other Medical History Have you received the Flu Vaccine for this season: No Have you received the Pneumonia Vaccine: No ROS Obtained: Yes All systems reviewed & no additional complaints except as documented Physical Exam General General appearance: alert and in no apparent distress Head Head exam: atraumatic and normocephalic Eye Eye exam: Present PERRL and EOMI ENT ENT exam: Present normal oropharynx Neck Neck exam: Present full ROM and trachea midline Chest Chest inspection: Present symmetric chest wall rise Respiratory Respiratory exam: Present normal lung sounds bilaterally; Absent stridor Cardiovascular Cardiovascular exam: Present regular rate and normal rhythm Abdominal Exam Abdominal exam: Present soft; Absent distention or tenderness Extremities Exam Extremities exam: Present full ROM Back Exam Back exam: Present tenderness and sciatic notch tenderness (R) Neurological Exam Neurological exam: Present alert and oriented X3 Psychiatric Psychiatric exam: Present normal mood Skin Skin exam: Present warm and dry Medical Decision Making Medical Records Screening: Per USPSTF and CDC recommendations, given the prevalence of disease in our region, it is our hospital?s policy to screen for HIV and viral Hepatitis for all patients aged 18 and over and those with ongoing risk factors. [place] Inquiry Pt receiving controlled substance: No Vital Signs: 09/26/25 12:28 Temperature 98.4 F Temperature Source Oral Pulse Rate [Left Radial] 78 Respiratory Rate 20 Blood Pressure [Right Arm] 156/100 H Blood Pressure Mean [Right Arm] 118 02 Sat by Pulse Oximetry 98 Oxygen Delivery Method Room Air Lab Data Lab Results 09/26/25 12:09: Urine Color Yellow, Urine Appearance Clear, Urine pH 7.0, Ur Spe cific [place] 1.020, Urine Protein Negative, Urine Glucose (UA) Negative, Urine Ketones Negative, Urine Blood Negative, Urine Nitrate Negative, Urine Bilirubin Negative, Urine Urobilinogen 1.0, Ur Leukocyte Esterase Negative, Urine RBC None, Urine WBC None, Ur Squamous Epith Cells 5-10, Urine Bacteria 1+ Orders (Tests/Meds): ED MEDICATIONS Discontinued Medications Generic Name Dose Route Start Last Admin Trade Name Freq PRN Reason Stop Dose Admin Acetaminophen 1,000 mg 09/26/25 12:41 09/26/25 13:12 Acetaminophen 500mg Tab PO 09/26/25 12:42 1,000 mg ONCE ONE Administration Dexamethasone 10 mg 09/26/25 12:41 09/26/25 13:11 Dexamethasone 4mg Tablet PO 09/26/25 12:42 10 mg ONCE ONE Administration Ketorolac Tromethamine 15 mg 09/26/25 12:41 09/26/25 13:13 Ketorolac 15mg/Ml Vial IM 09/26/25 12:42 15 mg ONCE ONE Administration Lidocaine 1 each 09/26/25 12:41 09/26/25 13:12 Lidocaine 5% Transdermal Patch TD 09/26/25 12:42 1 each ONCE ONE Administration Methocarbamol 1,000 mg 09/26/25 12:41 09/26/25 13:12 Methocarbamol 500mg Tablet PO 09/26/25 12:42 1,000 mg ONCE ONE Administration ORDERS Category Date Time Status UA [Urinalysis and Microscopic] Stat Lab 09/26/25 12:09 Completed Medical Decision Narrative: Patient is a 24-year-old female with no significant past medical history. Low back pain. Atraumatic. On arrival she is afebrile hemodynamically stable no acute distress on exam 1 well-perfused with full and equal pulses bilaterally in upper and lower extremities. She is completely neurovascularly intact in her bilateral lower extremities with brisk reflexes bilaterally patellar early. No rashes noted. She is mildly midline tender in her lumbar spine and is very tender in her right sciatic notch. Suspect lumbar strain. Treated with multimodal pain control here. On reassessment, patient reports improvement in her symptoms and she is ambulatory about the emergency department. She is without red flag symptoms for cauda equina. Considered MRI, but deferred given reassuring clinical exam. Likely a lumbar strain. Urinalysis from triage obtained reviewed by myself demonstrate no gross hematuria or evidence of infection. PCP follow-up. My clinical impression was discussed with the patient and all questions were answered. Return precautions were given, with verbalization of understanding and agreement of this plan. Any pending results are to be followed up online. Critical Care Critical Care Time Critical Care Time: No
[2025-09-26 12:41] LABS: Bacteria,Urine 1+ /lpf
[2025-09-26] MEDS: DEXAMETHASONE 4MG TABLET 10 MG PO (13:11)
[2025-09-26] MEDS: LIDOCAINE 5% TRANSDERMAL PATCH 1 EACH TD (13:12)
[2025-09-26] MEDS: METHOCARBAMOL 500MG TABLET 1000 MG PO (13:12)
[2025-09-26] MEDS: ACETAMINOPHEN 500MG TAB 1000 MG PO (13:12)
[2025-09-26] MEDS: KETOROLAC 15MG/ML VIAL 15 MG IM (13:13)
== END 2025-09-26 14:47 | disposition home or self-care (01) ==
PROVIDERS: Emergency Provider Emergency Medicine
DX: S39.012A Strain of muscle, fascia and tendon of lower back, initial encounter (principal); X58.XXXA Exposure to other specified factors, initial encounter; Y92.009 Unspecified place in unspecified non-institutional (private) residence as the place of occurrence of the external cause
CPT/HCPCS: 81001; 96372; 99285; J1885; J8540